=== PATIENT | female | born 1995 | race Caucasian/White ===

== ENCOUNTER 2016-04-23 08:00 | Outpatient (CLI) | payer BC | END 2016-04-23 08:01 | disposition home or self-care (01) | DX: Z36 Encounter for antenatal screening of mother (principal) ==

== ENCOUNTER 2016-05-09 14:13 | Outpatient (CLI) | payer BC | END 2016-05-09 14:14 | disposition home or self-care (01) | DX: O13.3 Gestational [pregnancy-induced] hypertension without significant proteinuria, third trimester (principal) ==

== ENCOUNTER 2016-05-09 20:25 | Inpatient (IN) | payer BC ==
[2016-05-09] MEDS ORDERED: SODIUM CHLORIDE FLUSH 0.9% 10 ML SYRINGE IVP ONE (20:39)
[2016-05-09] MEDS ORDERED: LACTATED RINGERS 1,000 ML IV ONE ×2 (20:39→21:50)
[2016-05-09] MEDS ORDERED: SODIUM CHLORIDE FLUSH 0.9% 10 ML SYRINGE IVP PRN (20:49)
[2016-05-09] MEDS ORDERED: SUFENTA/BUPIV 0.4 MCG/0.0625% 150 ML EP ONE (22:04)
[2016-05-09] MEDS: LACTATED RINGERS 1,000 ML IV SCH (22:08)
[2016-05-09] MEDS ORDERED: ROPIVACAINE 0.2% PF 20 ML AMPULE SUBQ ONE (22:19)
[2016-05-09] MEDS ORDERED: ePHEDrine 50 MG/ML AMP IVP PRN (22:32)
[2016-05-09] MEDS ORDERED: NALBUPHINE 20 MG/ML AMP IVP PRN (22:32)
[2016-05-09] MEDS ORDERED: SUFENTA/BUPIV 0.4 MCG/0.0625% EPIDURAL 150 ML EP PRN (22:32)
[2016-05-09] MEDS ORDERED: LACTATED RINGERS 500 ML IV ONE (22:32)
[2016-05-09] MEDS ORDERED: METOCLOPRAMIDE 10 MG/2 ML VIAL IVP PRN (22:32)
[2016-05-09] MEDS ORDERED: ONDANSETRON 4 MG/2 ML VIAL IVP PRN (22:32)
[2016-05-09] MEDS ORDERED: diphenhydrAMINE INJ 50 MG/ML VIAL IVP PRN (22:32)
[2016-05-09] MEDS ORDERED: NALOXONE 0.4 MG/ML VIAL IVP PRN (22:32)
[2016-05-10] MEDS ORDERED: fentaNYL 100 MCG/2 ML VIAL ONE (02:04)
[2016-05-10] MEDS ORDERED: OXYTOCIN/LACTATED RINGERS 250 ML IV ONE ×2 (02:36→03:06)
[2016-05-10] MEDS ORDERED: LIDOCAINE 1% 50 ML MDV ONE (02:40)
[2016-05-10] MEDS ORDERED: WITCH HAZEL/GLYCERIN 1 EACH MED..PAD TOP PRN (03:06)
[2016-05-10] MEDS ORDERED: HYDROCORTISONE/PRAMOXINE 10 GM PR PRN (03:06)
[2016-05-10] MEDS: IBUPROFEN 800 MG TABLET PO SCH ×4 (04:55→23:16)
[2016-05-10] MEDS: ACETAMINOPHEN 500 MG TABLET PO SCH ×3 (04:56→21:36)
[2016-05-10] MEDS: SODIUM CHLORIDE FLUSH 0.9% 10 ML SYRINGE IVP SCH ×2 (20:23→20:24)
[2016-05-10] MEDS: LACTATED RINGERS 1,000 ML IV SCH ×2 (20:33→20:34)
[2016-05-11] MEDS: LACTATED RINGERS 1,000 ML IV SCH (00:59)
[2016-05-11] MEDS: ACETAMINOPHEN 500 MG TABLET PO SCH (05:44)
[2016-05-11] MEDS: IBUPROFEN 800 MG TABLET PO SCH (05:45)
[2016-05-11] MEDS ORDERED: TETANUS/DIPHTHERIA/PERTUSSIS 0.5 ML SYRINGE IM ONE (08:35)
== END 2016-05-11 10:05 | disposition home or self-care (01) | DRG 775 ==
PROC: 10E0XZZ Delivery of Products of Conception, External Approach (ICD-10-PCS; principal; 2016-05-10)
DX: O99.343 Other mental disorders complicating pregnancy, third trimester (principal); F41.9 Anxiety disorder, unspecified; F31.9 Bipolar disorder, unspecified; O99.334 Smoking (tobacco) complicating childbirth; F17.200 Nicotine dependence, unspecified, uncomplicated; O76 Abnormality in fetal heart rate and rhythm complicating labor and delivery; Z3A.39 39 weeks gestation of pregnancy; Z37.0 Single live birth; O13.3 Gestational [pregnancy-induced] hypertension without significant proteinuria, third trimester

== ENCOUNTER 2017-04-12 11:31 | Emergency (ER) | payer BC, MEDICAID ==
[2017-04-12 12:06] LABS: BILIRUBIN,URINE NEGATIVE (NEGATIVE); GLUCOSE, URINE (UA) NEGATIVE (NEGATIVE); KETONES,URINE (UA) NEGATIVE (NEGATIVE); LEUKOCYTE ESTERASE, URINE NEGATIVE (NEGATIVE); NITRITE,URINE NEGATIVE (NEGATIVE); OCCULT BLOOD,URINE NEGATIVE (NEGATIVE); PH,URINE 6.5 PH (5.0-7.5); PROTEIN,URINE NEGATIVE (NEGATIVE); UROBILINOGEN,URINE 0.2 (NORMAL) E.U./dL (NORMAL)
--- NOTE | 2017-04-12 12:09 | ED Physician Documentation ---
PD HPI ABD PAIN - Stated complaint Stated Complaint: BLEEDING/7 WEEKS PREG - Chief complaint Chief Complaint: Abd Pain - History obtained from History obtained from: Patient - History of Present Illness Timing - onset: Other ( A1 at 7 weeks and 2 days by dates presents with slight vaginal bleeding but no pain today. Blood type is known to be a positive.) Review of Systems Constitutional: denies: Fever, Chills : reports: Vaginal bleeding, Now EGA. denies: Dysuria, Frequency PD PAST MEDICAL HISTORY - Present Medications Home Medications: Ambulatory Orders Medication Instructions Recorded Confirmed Pnv No.122/Iron/Folic Acid 04/12/17 [ Multi Tablet] - Allergies Allergies/Adverse Reactions: Allergies Allergy/AdvReac Type Severity Reaction Status Date / Time Penicillins Allergy Edema Verified 04/12/17 11:40 - Social History Does the pt smoke?: Yes Smoking Status: Current every day smoker PD ED PE NORMAL - Vitals Vital signs reviewed: Yes - General General: Alert and oriented X 3, No acute distress - Abdomen Abdomen: Normal bowel sounds, Soft, Non tender - Female Female : Other (On bedside ultrasound the uterus does look full but I do not appreciate an intrauterine nor a heart rate.) - Neuro Neuro: Alert and oriented X 3, Normal speech Results - Vitals Vitals: Vital Signs - 24 hr 04/12/17 04/12/17 11:36 13:52 Temperature 36.8 C Heart Rate 97 88 Respiratory 16 16 Rate Blood Pressure 136/86 H 123/59 L O2 Saturation 100 100 Oxygen O2 Source Room air - Labs Labs: Laboratory Tests 04/12/17 04/12/17 11:45 12:34 HCG, Quant 14826.00 Urine Color YELLOW Urine Clarity CLEAR Urine pH 6.5 Ur Specific [place] >=1.030 H Urine Protein NEGATIVE Urine Glucose (UA) NEGATIVE Urine Ketones NEGATIVE Urine Occult Blood NEGATIVE Urine Nitrite NEGATIVE Urine Bilirubin NEGATIVE Urine Urobilinogen 0.2 (NORMAL) Ur Leukocyte Esterase NEGATIVE Urine RBC None Seen Urine WBC 0-3 Ur Squamous Epith Cells MOD Squamous H Urine Bacteria Few Urine Mucus Marked Strands Urine Culture Comments NOT INDICATED Urine HCG, Qual POSITIVE - Rads (name of study) Pelvic sono Radiology: Discussed with rads, EMP read contemporaneously (IUP about 5w no FHT) PD MEDICAL DECISION MAKING - ED course ED course: 21-year-old with threatened , no clear signs of a miscarriage, but fetus is smaller than dates, although more concordant with dates based on last intercourse. Watchful waiting was advised. Departure - Departure Disposition: 01 Home, Self Care Clinical Impression: Threatened affecting intrauterine Condition: Good Record reviewed to determine appropriate education?: Yes Instructions: ED Miscarriage Poss Follow-Up: Jenny Liu CNM, [facility] [Provider Admit Priv/Credential] - Comments: Return for severe pain or heavy bleeding. Otherwise call Jenny and follow-up in about a week, anticipate she will either order a repeat ultrasound and/or a repeat beta-hCG. Discharge Date/Time: 04/12/17 14:18
[2017-04-12 12:15] LABS: BACTERIA,URINE Few /HPF (None Seen); CLARITY,URINE CLEAR (CLEAR); MUCUS,URINE Marked Strands; RBC,URINE None Seen /HPF (0-5); SQUAMOUS EPITHELIAL CELL,UR MOD Squamous (<= Few)
[2017-04-12 12:16] LABS: HCG UR QUAL POSITIVE
[2017-04-12 13:52] VITALS: BP 123/59
--- NOTE | 2017-04-12 15:45 | Ultrasound Report ---
FIRST TRIMESTER OB ULTRASOUND: 04/12/2017 INDICATION: Vaginal bleeding, TECHNIQUE: Transabdominal pelvic ultrasound performed for global evaluation. Transvaginal pelvic ultrasound performed for detailed evaluation. Real-time scanning performed and static images obtained. FINDINGS: The uterus is anteverted. There is a gestational sac in the endometrial canal, with yolk sac and pole visualized. No heart motion is seen, but by gestational sac mean diameter, it is too early for definitive visualization of heart motion. There does appear to be a 3.0 x 2.4 x 1.2 cm perigestational hemorrhage present. By crown rump length, the dates 5 weeks 6 days (7 weeks 1 day by LMP). The right ovary measures 4.8 x 3.3 x 3.0 cm, and demonstrates a corpus luteum. The left ovary measures 2.3 x 1.4 x 1.3 cm, and appears unremarkable. Trace free fluid is present. IMPRESSION: LIKELY IN PROGRESS, GIVEN ABSENT HEART MOTION AND PERIGESTATIONAL HEMORRHAGE, BUT BY GESTATIONAL SAC SIZE, IT IS TOO EARLY TO EXCLUDE THE POSSIBILITY OF A VIABLE GESTATION. IF CLINICALLY WARRANTED, FOLLOWUP SERIAL QUANTITATIVE BETA HCGS AND RESCANNING IN 7-10 DAYS FOR VIABILITY. Results discussed with Dr. Ivory in the emergency department on 04/12/2017 at 2 p.m. TD: 04/12/2017 15:44
== END 2017-04-12 14:18 | disposition home or self-care (01) ==
LOC: ED 11:31
DX: O20.0 Threatened abortion (principal); F17.200 Nicotine dependence, unspecified, uncomplicated; Z3A.01 Less than 8 weeks gestation of pregnancy
CPT/HCPCS: 36415; 76801; 76817; 81001; 81025; 84702; 87086; 99283

== ENCOUNTER 2017-04-15 14:45 | Outpatient (CLI) | payer MEDICAID | END 2017-04-15 14:46 | disposition home or self-care (01) | LOC: LAB 14:45 | PROVIDERS: ATTEND Registered Nurse | DX: O20.0 Threatened abortion (principal) | CPT/HCPCS: 36415; 84702 ==

== ENCOUNTER 2017-04-22 19:51 | Outpatient (CLI) | payer MEDICAID ==
--- NOTE | 2017-04-24 15:29 | Ultrasound Report ---
FIRST TRIMESTER OB ULTRASOUND WITH TRANSVAGINAL: 04/22/2017 CLINICAL INDICATION: Threatened . COMPARISON: 04/12/2017. TECHNIQUE: Transabdominal pelvic ultrasound performed for global evaluation. Transvaginal pelvic ultrasound performed for detailed evaluation. Real-time scanning performed and static images obtained. LAST MENSTRUAL PERIOD 02/21/2017 Clinical Age(LMP) 8 weeks 4 days LMP 7 weeks 0 days CRL US Age -- EFW Hadlock -- EFW% Hadlock -- Heart Rate 130 bpm EDC 11/28/2017 LMP 12/09/2017 CRL US EDC -- BPD Hadlock -- HC Hadlock -- AC Hadlock -- FL Hadlock -- Presentation -- Placental Location -- Cervical Length closed Amniotic Fluid -- FINDINGS: The uterus is retroverted. There is a gestational sac present within the endometrial canal, with pole, and yolk sac identified. heart rate is 130 BPM. By crown-rump length, the fetus measures 7 weeks 0 days (8 weeks 4 days by LMP). Estimated due date based on crown-rump length is 12/09/2017. There is perigestational hemorrhage present, measuring up to 4.2 cm in maximal diameter. The right ovary measures 3.6 x 2.7 x 1.8 cm, and demonstrates a 2.7 cm corpus luteum. The left ovary is suboptimally visualized , but no left adnexal mass is appreciated. No free fluid is present. IMPRESSION: SINGLE VIABLE INTRAUTERINE GESTATION, MEASURING 7 WEEKS 0 DAYS BY CROWN-RUMP LENGTH, YIELDING AN ESTIMATED DUE DATE OF 12/09/2017. THIS IS AN 11-DAY DIFFERENCE FROM LMP DATING, SO ULTRASOUND DATING SHOULD BE USED FOR THE DURATION OF THE . PERIGESTATIONAL HEMORRHAGE. RIGHT CORPUS LUTEUM. TD: 04/23/2017 14:41 [facility] HEALTHMichelle
== END 2017-04-22 19:52 | disposition home or self-care (01) ==
LOC: DI 19:51
PROVIDERS: ATTEND Registered Nurse
DX: O20.9 Hemorrhage in early pregnancy, unspecified (principal); Z3A.01 Less than 8 weeks gestation of pregnancy
CPT/HCPCS: 76801; 76817

== ENCOUNTER 2017-04-29 17:12 | Outpatient (CLI) | payer MEDICAID ==
--- NOTE | 2017-04-29 19:04 | Ultrasound Report ---
EXAM: FIRST TRIMESTER OBSTETRIC ULTRASOUND (Less than 11 weeks) EXAM DATE: 04/29/2017 06:22 PM. CLINICAL HISTORY: MISSED . LMP: Unknown. COMPARISONS: 04/22/2017. TECHNIQUE: Transabdominal and transvaginal ultrasound examination with static image documentation. CLINICAL DATES: EGA 8 weeks 0 days with WOJCIECH 12/07/2017 based on patient history. ASSESSMENT: Gestational Sac: Single intrauterine. Mean gestational sac diameter: 35.2 mm = 8 weeks 5 days. Embryo: CRL (crown-rump length) 15.2 mm = 7 weeks 6 days. Irregular configuration. Cardiac activity: None. Yolk sac: 3.2 mm. Amniotic fluid: Not accurately assessed at this gestational age. Early placenta: Not visible at this gestational age. Other: Perigestational fluid collection measuring 2.5 x 1.1 x 0.9 cm.. MATERNAL STRUCTURES: Uterus: Anteverted. Unremarkable. Cervix: Closed. Right Ovary/Adnexa: Unremarkable. The ovary measures 4.8 x 2.6 x 2.8 cm, volume 18.2 cc. Hemorrhagic cyst measuring 3.2 x 2.2 x 2.1 cm. Left Ovary/Adnexa: Unremarkable. The ovary measures 3.2 x 2.9 x 2.5 cm, volume 12.1 cc. Free Fluid: None. Other: None. IMPRESSION: Embryonic demise. RADIA The critical result notification system was initiated by Dr. Gerry Arroyo at 18:56 hrs on 04/29/17. The above findings were discussed with Artem Liu by Dr. Gerry Arroyo at 19:02 hrs on 04/29/17 . Referring Provider Line: [phone] SITE ID: [id number]
== END 2017-04-29 17:13 | disposition home or self-care (01) ==
LOC: DI 17:12
PROVIDERS: ATTEND Nurse Practitioner Obstetrics & Gynecology
DX: O02.1 Missed abortion (principal)
CPT/HCPCS: 76801; 76817

== ENCOUNTER 2017-05-01 16:31 | Outpatient (CLI) | payer MEDICAID ==
[2017-05-01 16:57] LABS: BASOPHILS % (AUTO) 0.5 %; EOSINOPHILS % (AUTO) 0.4 %; HGB - HEMOGLOBIN 12.6 g/dL (12.0-16.0); LYMPHOCYTES # (AUTO) 2.2 10^3/uL (1.5-3.5); LYMPHOCYTES % (AUTO) 22.1 %; MEAN CORPUSCULAR HEMOGLOBIN 29.2 pg (27.0-31.0); MEAN CORPUSCULAR HGB CONC 33.1 g/dL (32.0-36.0); MEAN CORPUSCULAR VOLUME 88.3 fL (81.0-99.0); MEAN PLATELET VOLUME 7.6 fL (7.9-10.8); MONOCYTES # (AUTO) 0.7 10^3/uL (0.0-1.0); MONOCYTES % (AUTO) 6.8 %; NEUTROPHILS % (AUTO) 70.2 %; PLT - PLATELET COUNT 211 10^3/uL (130-450); RED CELL DISTRIBUTION WIDTH 13.1 % (12.0-15.0)
== END 2017-05-01 16:32 | disposition home or self-care (01) ==
LOC: LAB 16:31
PROVIDERS: ATTEND Obstetrics & Gynecology
DX: O02.1 Missed abortion (principal)
CPT/HCPCS: 36415; 85025; 86850; 86900; 86901

== ENCOUNTER 2017-05-03 07:43 | Day surgery (SDC) | payer MEDICAID ==
--- NOTE | 2017-05-02 16:50 | PREOP HISTORY & PHYSICAL ---
DATE OF SERVICE: 05/03/2017 Physician: Barry Stewart MD ANTICIPATED PROCEDURE: 05/03/2017 PATIENT IDENTIFICATION: Patient is a 21-year-old G4, P3, female whose last menstrual period was 02/21/2017. She has a history of long cycles, and by ultrasonic determination, she had an EDC of 12/09/2017. This would make her 8 weeks 2 days today. CHIEF COMPLAINT: Missed . HISTORY OF PRESENT ILLNESS: Patient had normal ultrasounds all the way up until 2 days ago, at which time she had an ultrasound in the office, which did not show any cardiac activity. She had an ultrasound done at the hospital, which confirmed this. She denies any cramping or bleeding at this time. She has been offered the options of observation, Cytotec, or D and C. At this particular time, the patient is opting for a D and C. She is somewhat anxious about anesthesia and was concerned about nausea. She has been informed that the anesthesiologist may try and premedicate her to see if they can decrease the risk for this. PAST MEDICAL HISTORY: Positive for anemia with her pregnancies. SURGICAL HISTORY: None. ALLERGIES: PENICILLIN, WHICH CAUSES HIVES. CURRENT MEDICATIONS 1. vitamins. 2. Iron. HABITS: Patient smokes. She has been encouraged not to. Denies use of alcohol or any street or addictive drugs. SOCIAL HISTORY: Patient is and lives with her spouse and children. 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 REVIEW OF SYSTEMS: Positive for need of wearing glasses, as well as constipation. PHYSICAL EXAMINATION GENERAL: Patient is a well-developed, well-nourished white female. She is in no acute distress at this time. HEENT: Pupils equal, round. Extraocular muscles are intact. Thyroid is not palpably enlarged. HEART: Regular rate and rhythm without murmurs. LUNGS: Lung wirght are clear without rales or wheezes. BACK: No spinal or CVA tenderness noted. ABDOMEN: Exam shows evidence of striae from previous pregnancies but does not show evidence of any gallbladder or liver enlargement. PELVIC: Examination previously performed by Jenny Liu showed a cervix which was closed, a uterus which was anterior and roughly 8-week size. IMPRESSION: A 21-year-old G4, P3 female with 8.2 weeks missed . PLAN: We will perform sharp and suction D and C. We will also utilize Cytotec 400 mg vaginally about 2 hours prior to the procedure to increase softening. Risks and benefits have been explained to the patient including those, but not limited to bleeding, infection, injury to pelvic organs which include the uterus, tubes, ovaries, bowel, bladder, and ureters. She is aware of the potential for DVT with PE, as well as postop adhesions, which could cause pain, bowel obstruction and infertility. TD: 05/01/2017 19:43
[2017-05-03] MEDS ORDERED: LACTATED RINGERS 1,000 ML IV ONE (07:49)
[2017-05-03] MEDS ORDERED: ceFAZolin 2 GM/50 ML 2 GM/50 ML BAG IV ONE (07:52)
[2017-05-03] MEDS ORDERED: DEXAMETHASONE 4 MG/ML VIAL IVP ONE (09:15)
[2017-05-03] MEDS ORDERED: METHYLERGONOVINE 0.2 MG/ML AMP IVP ONE (09:15)
[2017-05-03] MEDS ORDERED: MIDAZOLAM 2 MG/2 ML VIAL IVP ONE (09:15)
[2017-05-03] MEDS ORDERED: fentaNYL 250 MCG/5 ML VIAL IVP ONE (09:15)
[2017-05-03] MEDS ORDERED: LIDOCAINE-MPF 2% 5 ML VIAL IM ONE (09:15)
[2017-05-03] MEDS ORDERED: ONDANSETRON 4 MG/2 ML VIAL IVP ONE (09:15)
[2017-05-03] MEDS ORDERED: KETOROLAC 30 MG/ML VIAL IVP ONE (09:15)
[2017-05-03] MEDS ORDERED: PROPOFOL 200 MG/20 ML VIAL IVP ONE (09:15)
[2017-05-03] MEDS ORDERED: oxyCODONE 5 MG TABLET ONE (10:37)
--- NOTE | 2017-05-03 10:44 | OPERATIVE REPORT ---
DATE OF SERVICE: 05/03/2017 Physician: Barry Stewart MD PREOPERATIVE DIAGNOSIS: Missed . POSTOPERATIVE DIAGNOSIS: Missed . NAME OF PROCEDURE: Sharp and suction dilation and curettage. SURGEON: Barry Stewart MD ANESTHESIA: LMA by Brayan Cortez CRNA. FINDINGS: Uterus sounded to 10 cm. COMPLICATIONS: None. ESTIMATED BLOOD LOSS: 150 mL. SPECIMEN TO PATHOLOGY: Products of conception. PROCEDURE: Following adequate anesthesia, the patient was placed in dorsal lithotomy position in [facility]. She was then prepped and then draped in the usual fashion. A timeout was performed, in which all issues were identified. The patient was confirmed, as well as procedure. A speculum was placed in the vagina. The cervix was visualized, grasped with a single-tooth tenaculum anteriorly. Uterus was sounded to 10 cm. Following this , the cervix was dilated up. No resistance was felt until 8 mm. This brought all the way up to 10 cm. At this point, a suction catheter was placed inside the uterus. It was rotated and gradually withdrawn. A normal amount of tissue was encountered. Bleeding was noted to be minimal at this time. The suction catheter was once again introduced and then suction applied. At this point, the endometrial cavity was sharply curetted in all quadrants. The patient was administered 0.2 mg of Methergine. The suction catheter was once more introduced and no further tissue was removed. At this point, the cervix was inspected and no bleeding noted. It was then released from the single-tooth tenaculum. The patient tolerated the procedure well and was taken to the recovery room in stable condition. TD: 05/03/2017 10:42 [facility]ITAL[facility]
[2017-05-03 11:04] VITALS: BP 124/62
== END 2017-05-03 07:44 | disposition home or self-care (01) ==
LOC: SDS 07:43
PROVIDERS: ATTEND Obstetrics & Gynecology
PROC: 10D17ZZ Extraction of Products of Conception, Retained, Via Natural or Artificial Opening (ICD-10-PCS; principal; 2017-05-03 08:45)
DX: O02.1 Missed abortion (principal); F17.200 Nicotine dependence, unspecified, uncomplicated
CPT/HCPCS: 59820; J0690; J3010; J7120

== ENCOUNTER 2017-10-01 08:00 | Outpatient (CLI) | payer MEDICAID ==
[2017-10-01 13:52] LABS: BASOPHILS % (AUTO) 0.5 %; EOSINOPHILS % (AUTO) 1.3 %; HGB - HEMOGLOBIN 13.3 g/dL (12.0-16.0); LYMPHOCYTES # (AUTO) 1.5 10^3/uL (1.5-3.5); LYMPHOCYTES % (AUTO) 44.8 %; MEAN CORPUSCULAR HEMOGLOBIN 30.3 pg (27.0-31.0); MEAN CORPUSCULAR HGB CONC 34.3 g/dL (32.0-36.0); MEAN CORPUSCULAR VOLUME 88.3 fL (81.0-99.0); MEAN PLATELET VOLUME 8.8 fL (7.9-10.8); MONOCYTES # (AUTO) 0.3 10^3/uL (0.0-1.0); MONOCYTES % (AUTO) 7.9 %; NEUTROPHILS # (AUTO) 1.5 10^3/uL (1.5-6.6); NEUTROPHILS % (AUTO) 45.5 %; PLT - PLATELET COUNT 189 10^3/uL (130-450); RED BLOOD COUNT 4.41 10^6/uL (4.20-5.40); RED CELL DISTRIBUTION WIDTH 12.8 % (12.0-15.0); WHITE BLOOD COUNT 3.4 x10^3/uL (4.8-10.8)
[2017-10-01 14:26] LABS: ALBUMIN 4.6 g/dL (3.2-5.5); ALBUMIN/GLOBULIN RATIO 1.5 (1.0-2.2); ALKALINE PHOSPHATASE 41 IU/L (42-121); ALT ALANINE AMINOTRANSFERASE 18 IU/L (10-60); AST ASPARTATE AMINOTRANSFERASE 22 IU/L (10-42); BILIRUBIN,TOTAL 0.9 mg/dL (0.2-1.0); BUN - BLOOD UREA NITROGEN 14 mg/dL (6-20); CALCIUM 9.1 mg/dL (8.5-10.3); CARBON DIOXIDE - CO2 27 mmol/L (21-32); CHLORIDE 103 mmol/L (101-111); CHOL/HDL RATIO 2.9 (<4.4); CHOLESTEROL 160 mg/dL; CREATININE 0.6 mg/dL (0.4-1.0); GFR - MDRD 124 (>89); GLUCOSE 82 mg/dL (70-100); HDL CHOLESTEROL 55 mg/dL; SODIUM 138 mmol/L (135-145); TOTAL PROTEIN 7.6 g/dL (6.7-8.2)
[2017-10-01 14:51] LABS: LDL CHOLESTEROL,DIRECT 89 mg/dL; LDLD/HDL RATIO 1.6 (<4.4)
== END 2017-10-01 08:01 | disposition home or self-care (01) ==
LOC: LAB.N 08:00
PROVIDERS: ATTEND Nurse Practitioner Gerontology
DX: Z13.9 Encounter for screening, unspecified (principal); E03.9 Hypothyroidism, unspecified
CPT/HCPCS: 36415; 80050; 80061; 83721

== ENCOUNTER 2018-02-14 10:13 | Emergency (ER) | payer MEDICAID ==
[2018-02-14 11:52] LABS: BILIRUBIN,URINE NEGATIVE (NEGATIVE); GLUCOSE, URINE (UA) 100 mg/dL (NEGATIVE); KETONES,URINE (UA) TRACE mg/dL (NEGATIVE); LEUKOCYTE ESTERASE, URINE SMALL (NEGATIVE); NITRITE,URINE POSITIVE (NEGATIVE); OCCULT BLOOD,URINE LARGE (NEGATIVE); PH,URINE 6.5 PH (5.0-7.5); PROTEIN,URINE 100 mg/dL (NEGATIVE); UROBILINOGEN,URINE 4 E.U./dL (NORMAL)
[2018-02-14 11:57] LABS: CLARITY,URINE HAZY (CLEAR); HCG UR QUAL NEGATIVE
--- NOTE | 2018-02-14 12:08 | ED Physician Documentation ---
PD HPI FEMALE - Stated complaint Stated Complaint: FEMALE - Chief complaint Chief Complaint: UTI - History obtained from History obtained from: Patient - History of Present Illness Timing - onset: How many days ago (2-3) Timing - duration: Days (2-3) Timing - details: Gradual onset Pain level max: 3 Pain level max: 2 Associated symptoms: Dysuria, Urinary frequency Contributing factors: No: Similar symptoms before: Diagnosis (UTI) Recently seen: Not recently seen Review of Systems Constitutional: denies: Fever GI: denies: Vomiting Skin: denies: Rash Musculoskeletal: denies: Back pain PD PAST MEDICAL HISTORY - Past Medical History Cardiovascular: None Respiratory: None Endocrine/Autoimmune: None GI: None : None HEENT: None Psych: Anxiety, Obsessive compulsive disorder Musculoskeletal: None Derm: None - Present Medications Home Medications: Ambulatory Orders Medication Instructions Recorded Confirmed Multivitamin [Multiple Vitamins] 02/14/18 Nitrofurantoin Monohyd/M-Cryst 100 mg PO BID #10 capsule 02/14/18 [Macrobid 100 mg Capsule] Phenazopyridine HCl [Pyridium] 200 mg PO TID PRN #6 tablet 02/14/18 - Allergies Allergies/Adverse Reactions: Allergies Allergy/AdvReac Type Severity Reaction Status Date / Time Penicillins Allergy Edema Verified 02/14/18 10:32 - Social History Does the pt smoke?: Yes Smoking Status: Current every day smoker PD ED PE NORMAL - Vitals Vital signs reviewed: Yes - General General: Alert and oriented X 3, No acute distress - HEENT HEENT: Moist mucous membranes - Abdomen Abdomen: Soft, Non tender, Non distended - Back Back: No CVA TTP - Derm Derm: Warm and dry - Neuro Neuro: Alert and oriented X 3 Results - Vitals Vitals: Vital Signs - 24 hr 02/14/18 02/14/18 10:29 12:10 Temperature 36.7 C 36.5 C Heart Rate 96 95 Respiratory 16 16 Rate Blood Pressure 111/63 122/62 O2 Saturation 100 100 Oxygen O2 Source Room air - Labs Labs: Laboratory Tests 02/14/18 02/14/18 11:36 11:36 Urine Color ORANGE Urine Clarity HAZY Urine pH 6.5 Ur Specific [place] 1.025 1.025 Urine Protein 100 H Urine Glucose (UA) 100 H Urine Ketones TRACE Urine Occult Blood LARGE H Urine Nitrite POSITIVE H Urine Bilirubin NEGATIVE Urine Urobilinogen 4 H Ur Leukocyte Esterase SMALL H Ur Microscopic Review INDICATED Urine Culture Comments Not Reportable Urine HCG, Qual NEGATIVE PD MEDICAL DECISION MAKING - ED course Complexity details: reviewed results, considered differential, d/w patient ED course: 2-year-old female with a UTI. Will place on antibiotics for home. Well- appearing, nontoxic. Afebrile. No evidence of pyelonephritis. Patient counseled regarding signs and symptoms for which I believe and urgent re- evaluation would be necessary. Patient with good understanding of and agreement to plan and is comfortable going home at this time This document was made in part using voice recognition software. While efforts are made to proofread this document, sound alike and grammatical errors may occur. Departure - Departure Disposition: Home, Self Care Clinical Impression: Urinary tract infection Qualifiers: Urinary tract infection type: acute cystitis Hematuria presence: without hematuria Qualified Code(s): N30.00 - Acute cystitis without hematuria Condition: Good Instructions: ED UTI Cystitis Female Follow-Up: Irene Agarwal ARNP [Primary Care Provider] - Within 1 week (if not better) Prescriptions: Nitrofurantoin Monohyd/M-Cryst [Macrobid 100 mg Capsule] 100 mg PO BID #10 capsule Phenazopyridine HCl [Pyridium] 200 mg PO TID PRN #6 tablet PRN Reason: dysuria Comments: Take all antibiotics until gone. Return if you worsen.
[2018-02-14 12:11] VITALS: BP 122/62
[2018-02-14 12:13] LABS: RBC,URINE TNTC /HPF (0-5)
[2018-02-14 12:14] LABS: BACTERIA,URINE Few /HPF (None Seen); MUCUS,URINE Few Strands; SQUAMOUS EPITHELIAL CELL,UR FEW Squamous (<= Few)
== END 2018-02-14 12:12 | disposition home or self-care (01) ==
LOC: ED 10:13
DX: N30.00 Acute cystitis without hematuria (principal); F17.200 Nicotine dependence, unspecified, uncomplicated
CPT/HCPCS: 81001; 81003; 81025; 87086; 87181; 99283

== ENCOUNTER 2018-09-11 17:15 | Outpatient (CLI) | payer MEDICAID ==
--- NOTE | 2018-09-12 11:46 | Ultrasound Report ---
Reason: TEST POSITIVE Procedure Date: 09/11/2018 Accession Number: [id number] / [id number] Procedure: US - OB First Trimester CPT Code: FULL RESULT: EXAM: FIRST TRIMESTER OBSTETRIC ULTRASOUND (Less than 11 weeks) EXAM DATE: 09/11/2018 06:14 PM. CLINICAL HISTORY: test positive. LMP: 07/17/2018. COMPARISONS: OB FIRST TRIMESTER 04/22/2017 7:59 PM. TECHNIQUE: Transabdominal and transvaginal ultrasound examination with static image documentation. CLINICAL DATES: EGA 8 weeks 0 days with WOJCIECH 04/23/2019 based on LMP. ASSESSMENT: Gestational Sac: Single intrauterine. Mean gestational sac diameter: 6.7 mm = 5 weeks 3 days with an WOJCIECH of 05/11/2019. Embryo: None. Cardiac activity: None. Yolk sac: None. Amniotic fluid: Not accurately assessed at this gestational age. Early placenta: Not visible at this gestational age. Other: No perigestational fluid collection demonstrated. MATERNAL STRUCTURES: Uterus: Anteverted. Unremarkable. Cervix: Closed. Right Ovary/Adnexa: The ovary measures 3.4 x 1.9 x 2.1 cm, volume 7 cc. 1.6 x 0.7 x 0.8 cm hypoechoic right ovarian cyst. No concerning features are noted. Left Ovary/Adnexa: The ovary measures 2.5 x 2.7 x 2.1 cm, volume 7.4 cc. Unremarkable. Free Fluid: Small volume of free fluid is noted. Other: None. IMPRESSION: 1. Single intrauterine gestational sac of unclear viability at EGA 5 weeks 3 days with WOJCIECH 05/11/2019 based on mean sac diameter, which is discordant with clinical dates. 2. Recommend follow-up ultrasound for dating purposes and to document progression of . 3. No complication such as a subchronic hemorrhage. 4. 1.6 cm right ovarian cyst. Otherwise, both ovaries and adnexa are normal. RADIA
== END 2018-09-11 17:16 | disposition home or self-care (01) ==
LOC: DI 17:15
PROVIDERS: ATTEND Nurse Practitioner Obstetrics & Gynecology
DX: Z32.01 Encounter for pregnancy test, result positive (principal); O34.81 Maternal care for other abnormalities of pelvic organs, first trimester; N83.201 Unspecified ovarian cyst, right side; Z3A.01 Less than 8 weeks gestation of pregnancy
CPT/HCPCS: 76801; 76817

== ENCOUNTER 2018-09-19 08:39 | Outpatient (CLI) | payer MEDICAID ==
--- NOTE | 2018-09-21 00:33 | Ultrasound Report ---
Reason: UNCERTAIN VIABILITY OF Procedure Date: 09/19/2018 Accession Number: [id number] / [id number] Procedure: US - OB First Trimester CPT Code: FULL RESULT: EXAM: OB FIRST TRIMESTER EXAM DATE: 09/19/2018 08:47 AM INDICATION: Uncertain viability of . LMP: 07/17/2018. COMPARISONS: OB FIRST TRIMESTER 09/11/2018 5:34 PM. TECHNIQUE: Transabdominal only ultrasound examination with static image documentation. CLINICAL DATES: EGA 6 weeks 4 days with WOJCIECH 05/11/2019 based on prior ultrasound. ASSESSMENT: Gestational Sac:Single intrauterine. Mean gestational sac diameter: 9 mm = 05/17/2019. Previous gestational sac measures 6.7 mm. Embryo: none. Cardiac activity: none. Yolk sac: none. Amniotic fluid: Not applicable. Early placenta: Not applicable. Other: None. MATERNAL STRUCTURES: Uterus: Anteverted. Unremarkable. Cervix: Closed. Right Ovary/Adnexa: Unremarkable. The ovary measures 2.8 x 1.8 x 2.6 cm, volume 6.7 cc. Left Ovary/Adnexa: Ovary not seen. No adnexal abnormality. Limitation secondary to bowel gas. Free Fluid: None. Other: None. IMPRESSION: 1. Single intrauterine gestational sac identified. No embryo or yolk sac seen. Based on the mean sac diameter, estimated gestational age is 5 weeks 5 days with an WOJCIECH of 05/17/2019. No developing embryo identified on the current study despite the previous ultrasound performed 9 days ago. Previous ultrasound demonstrated a gestational sac measuring 6.7 mm. No embryo or yolk sac identified on the current study. Imaging findings are concerning for but not diagnostic of failure. 2. No concerning adnexal lesions. Normal right ovary. Left ovary not seen. RADIA
== END 2018-09-19 08:40 | disposition home or self-care (01) ==
LOC: DI 08:39
PROVIDERS: ATTEND Nurse Practitioner Obstetrics & Gynecology
DX: O36.80X0 Pregnancy with inconclusive fetal viability, not applicable or unspecified (principal)
CPT/HCPCS: 76801

== ENCOUNTER 2018-09-22 | Outpatient (CLI) | payer MEDICAID | END 2018-09-22 19:02 | disposition home or self-care (01) | DX: O36.80X0 Pregnancy with inconclusive fetal viability, not applicable or unspecified (principal) ==

== ENCOUNTER 2018-09-24 18:48 | Outpatient (CLI) | payer MEDICAID | END 2018-09-24 18:49 | disposition home or self-care (01) | LOC: EMS 18:48 | PROVIDERS: ATTEND Nurse Practitioner Obstetrics & Gynecology | DX: O36.80X0 Pregnancy with inconclusive fetal viability, not applicable or unspecified (principal) | CPT/HCPCS: 36415; 84702 ==

== ENCOUNTER 2018-09-26 10:25 | Outpatient (CLI) | payer MEDICAID | END 2018-09-26 10:26 | disposition home or self-care (01) | LOC: LAB 10:25 | PROVIDERS: ATTEND Obstetrics & Gynecology | DX: O36.80X0 Pregnancy with inconclusive fetal viability, not applicable or unspecified (principal) | CPT/HCPCS: 36415; 84702 ==

== ENCOUNTER 2019-03-16 06:41 | Outpatient (CLI) | payer MEDICAID ==
--- NOTE | 2019-03-16 07:52 | Ultrasound Report ---
Reason: TEST POSITIVE Procedure Date: 03/16/2019 Accession Number: [id number] / [id number] Procedure: US - OB First Trimester CPT Code: Final Report FULL RESULT: EXAM: FIRST TRIMESTER OBSTETRIC ULTRASOUND (Less than 11 weeks) EXAM DATE: 03/16/2019 06:53 AM. CLINICAL HISTORY: TEST POSITIVE. Dating. LMP: 01/12/2019. COMPARISONS: OB FIRST TRIMESTER 09/19/2018 8:46 AM. TECHNIQUE: Transabdominal ultrasound examination with static image documentation. CLINICAL DATES: EGA 9 weeks 0 days with WOJCIECH 10/19/2019 based on LMP. ASSESSMENT: Gestational Sac: Single intrauterine. Mean gestational sac diameter: 22.4 mm = 7 weeks 1 day. Embryo: CRL (crown-rump length) 18.0 mm = 8 weeks 2 days. Cardiac activity: 171 beats per minute. Yolk sac: 2.4 mm. Amniotic fluid: Not accurately assessed at this gestational age. Early placenta: Not visible at this gestational age. Other: No perigestational fluid collection demonstrated. MATERNAL STRUCTURES: Uterus: Anteverted. Unremarkable. Cervix: Closed. Right Ovary/Adnexa: The ovary measures 3.9 x 2.6 x 3.5 cm, volume 18.6 cc. There is a corpus luteum measuring 2.6 x 2.4 x 2.9 cm. Left Ovary/Adnexa: The ovary measures 2.6 x 0.9 x 1.6 cm, volume 2.0 cc. Unremarkable. Free Fluid: None. Other: None. IMPRESSION: 1. Single viable intrauterine at EGA 8 weeks 2 days with WOJCIECH 10/24/2019 based on crown-rump length, which is concordant with clinical dates. 2. Assigned dating is WOJCIECH 10/19/2019 based on LMP. DINA
== END 2019-03-16 06:42 | disposition home or self-care (01) ==
LOC: DI 06:41
PROVIDERS: ATTEND Obstetrics & Gynecology
DX: Z32.01 Encounter for pregnancy test, result positive (principal)
CPT/HCPCS: 76801

== ENCOUNTER 2019-04-03 08:00 | Outpatient (CLI) | payer MEDICAID ==
[2019-04-03 17:31] LABS: MUDS CUTOFF CONCENTRATIONS CUTOFF CONC BELOW:
[2019-04-03 17:39] LABS: BILIRUBIN,URINE NEGATIVE (NEGATIVE); GLUCOSE, URINE (UA) NEGATIVE (NEGATIVE); KETONES,URINE (UA) NEGATIVE (NEGATIVE); LEUKOCYTE ESTERASE, URINE NEGATIVE (NEGATIVE); NITRITE,URINE NEGATIVE (NEGATIVE); OCCULT BLOOD,URINE NEGATIVE (NEGATIVE); PROTEIN,URINE NEGATIVE (NEGATIVE); UROBILINOGEN,URINE 0.2 (NORMAL) E.U./dL (NORMAL)
[2019-04-03 17:55] LABS: AMORPHOUS SEDIMENT,UR Moderate /LPF; BACTERIA,URINE Rare /HPF (None Seen); CLARITY,URINE CLOUDY (CLEAR); RBC,URINE 0-5 /HPF (0-5); SQUAMOUS EPITHELIAL CELL,UR MOD Squamous (<= Few)
[2019-04-03 17:56] LABS: AMPHETAMINE SCREEN,URINE NEGATIVE (NEGATIVE); BENZODIAZEPINES SCREEN, URINE NEGATIVE (NEGATIVE); COCAINE SCREEN URINE NEGATIVE (NEGATIVE); METHADONE SCREEN, URINE NEGATIVE (NEGATIVE); METHAMPHETAMINES SCREEN, URINE NEGATIVE (NEGATIVE); OPIATE SCREEN, URINE NEGATIVE (NEGATIVE); OXYCODONE SCREEN, URINE NEGATIVE (NEGATIVE); PROPOXYPHENE SCREEN, URINE NEGATIVE (NEGATIVE); TRICYCLIC ANTIDEPRESSANT,URINE NEGATIVE (NEGATIVE)
[2019-04-03 21:35] LABS: TRICHOMONAS VAGINALIS DNA NEGATIVE (NEGATIVE)
== END 2019-04-03 23:59 | disposition home or self-care (01) ==
LOC: LAB.R 08:00
PROVIDERS: ATTEND Nurse Practitioner Obstetrics & Gynecology
DX: Z36.89 Encounter for other specified antenatal screening (principal)
CPT/HCPCS: 80306; 81001; 87086; 87491; 87591; 87661

== ENCOUNTER 2019-04-06 12:53 | Outpatient (CLI) | payer MEDICAID ==
[2019-04-06 13:23] LABS: BASOPHILS % (AUTO) 0.3 %; EOSINOPHILS # (AUTO) 0.1 10^3/uL (0.0-0.7); EOSINOPHILS % (AUTO) 1.1 %; HGB - HEMOGLOBIN 11.9 g/dL (12.0-16.0); LYMPHOCYTES # (AUTO) 2.1 10^3/uL (1.5-3.5); MEAN CORPUSCULAR HEMOGLOBIN 30.4 pg (27.0-31.0); MEAN CORPUSCULAR VOLUME 92.1 fL (81.0-99.0); MEAN PLATELET VOLUME 9.5 fL (7.9-10.8); MONOCYTES # (AUTO) 0.6 10^3/uL (0.0-1.0); MONOCYTES % (AUTO) 7.7 %; NEUTROPHILS # (AUTO) 4.7 10^3/uL (1.5-6.6); NEUTROPHILS % (AUTO) 62.4 %; PLT - PLATELET COUNT 193 10^3/uL (130-450); RED BLOOD COUNT 3.92 10^6/uL (4.20-5.40); WHITE BLOOD COUNT 7.4 x10^3/uL (4.8-10.8)
[2019-04-07 12:15] LABS: HEPATITIS B SURFACE ANTIGEN NON-REACTIVE (NON-REACTIVE); HEPATITIS C ANTIBODY NON-REACTIVE (NON-REACTIVE); HIV AG/AB 4TH GEN NON-REACTIVE (NON-REACTIVE)
== END 2019-04-06 12:54 | disposition home or self-care (01) ==
LOC: LAB 12:53
PROVIDERS: ATTEND Nurse Practitioner Obstetrics & Gynecology
DX: Z36.0 Encounter for antenatal screening for chromosomal anomalies (principal); Z36.89 Encounter for other specified antenatal screening; Z36.8A Encounter for antenatal screening for other genetic defects
CPT/HCPCS: 36415; 81599; 85025; 86592; 86762; 86803; 86850; 86900; 86901; 87340; 87389

== ENCOUNTER 2019-05-29 08:23 | Outpatient (CLI) | payer MEDICAID ==
--- NOTE | 2019-05-31 02:29 | Ultrasound Report ---
Reason: Procedure Date: 05/29/2019 Accession Number: [id number] / [id number] Procedure: US - OB Detailed Eval CPT Code: Final Report FULL RESULT: EXAM: COMPLETE OBSTETRICAL ULTRASOUND EXAM DATE: 05/29/2019 10:39 AM. CLINICAL HISTORY: anatomic survey. COMPARISON: OB FIRST TRIMESTER 03/16/2019 6:53 AM. TECHNIQUE: Real-time sonographic evaluation of the fetus performed by the silviculture teacher. Multiple financial foundations representative static images were saved for review. DATING: Established EGA 18 weeks 6 days with WOJCIECH 10/24/2019 based on stated dates. EGA 18 weeks 6 days with WOJCIECH 10/24/2019 based on first ultrasound. EGA 18 weeks 6 days with WOJCIECH 10/24/2019 based on the current ultrasound. GENERAL EVALUATION Liu . Cardiac activity: 150 bpm. movement: Visualized. Presentation: Variable. Placenta: Posterior position. No evidence for previa. Umbilical cord: 3 vessel cord. Central placental cord origin. Amniotic fluid: Subjectively normal. MVP 3.5 cm. BIOMETRY Bi-Parietal Diameter (BPD): 4.3 cm, 19 weeks 1 day Head Circumference (HC): 15.9 cm, 18 weeks 5 days Abdominal Circumference (AC): 13.5 cm, 19 weeks 0 days Femur Length (FL): 2.8 cm, 18 weeks 4 days Estimated Weight: 258 g, 41.8 percentile for 18 weeks 6 days. ANATOMY The intracranial structures, profile, face/nose/lips, spine, 4 chamber heart and outflow tracts, stomach, abdominal wall and cord insertion, diaphragm, kidneys, bladder, and extremities were visualized and demonstrate no abnormality. MATERNAL STRUCTURES Uterus: Unremarkable. Cervix: Long and closed. Transabdominal length 6.0 cm. Right ovary/adnexa: Unremarkable. Left ovary/adnexa: Unremarkable. Free fluid: None. IMPRESSION: 1. Liu live intrauterine with gestational age 18 weeks 6 days based on stated dates. 2. Estimated weight is within expected limits for assigned dating. 3. Normal anatomic survey. No anatomic abnormalities are detected at this time. RADIA
== END 2019-05-29 08:24 | disposition home or self-care (01) ==
LOC: DI 08:23
PROVIDERS: ATTEND Nurse Practitioner Obstetrics & Gynecology
DX: Z34.92 Encounter for supervision of normal pregnancy, unspecified, second trimester (principal); Z36.8A Encounter for antenatal screening for other genetic defects
CPT/HCPCS: 76811

== ENCOUNTER 2019-08-14 11:34 | Outpatient (CLI) | payer MEDICAID ==
[2019-08-14 12:53] LABS: HGB - HEMOGLOBIN 11.8 g/dL (12.0-16.0); MEAN CORPUSCULAR HEMOGLOBIN 31.6 pg (27.0-31.0); MEAN CORPUSCULAR HGB CONC 34.2 g/dL (32.0-36.0); MEAN CORPUSCULAR VOLUME 92.5 fL (81.0-99.0); MEAN PLATELET VOLUME 9.7 fL (7.9-10.8); RED BLOOD COUNT 3.73 10^6/uL (4.20-5.40); RED CELL DISTRIBUTION WIDTH 12.9 % (12.0-15.0); WHITE BLOOD COUNT 7.2 x10^3/uL (4.8-10.8)
== END 2019-08-14 11:35 | disposition home or self-care (01) ==
LOC: LAB 11:34
PROVIDERS: ATTEND Advanced Practice Midwife
DX: Z34.90 Encounter for supervision of normal pregnancy, unspecified, unspecified trimester (principal); Z36.8A Encounter for antenatal screening for other genetic defects; Z36.89 Encounter for other specified antenatal screening
CPT/HCPCS: 36415; 82950; 85027; 86850

== ENCOUNTER 2019-09-25 11:45 | Outpatient (CLI) | payer MEDICAID ==
[2019-09-25 19:34] LABS: TRICHOMONAS VAGINALIS DNA NEGATIVE (NEGATIVE)
== END 2019-09-25 23:59 | disposition home or self-care (01) ==
LOC: LAB.R 11:45
PROVIDERS: ATTEND Radiology Diagnostic Radiology
DX: Z34.90 Encounter for supervision of normal pregnancy, unspecified, unspecified trimester (principal); Z36.85 Encounter for antenatal screening for Streptococcus B
CPT/HCPCS: 87491; 87591; 87661; 87797

== ENCOUNTER 2019-10-16 06:03 | Inpatient (IN) | payer MEDICAID ==
[2019-10-16] MEDS ORDERED: TRANEXAMIC ACID 1,000 MG in SODIUM CHLORIDE 0.9% 100ML 100 ML IV PRN (06:25)
[2019-10-16] MEDS ORDERED: SODIUM CHLORIDE FLUSH 0.9% 10 ML SYRINGE IVP PRN (06:25)
[2019-10-16] MEDS ORDERED: CARBOPROST TROMETHAMINE 250 MCG/ML AMP IM PRN (06:25)
[2019-10-16] MEDS ORDERED: fentaNYL 100 MCG/2 ML VIAL IVP PRN (06:25)
[2019-10-16] MEDS ORDERED: ONDANSETRON 4 MG/2 ML VIAL IVP PRN ×2 (06:25→09:10)
[2019-10-16] MEDS ORDERED: OXYTOCIN 10 UNIT/ML VIAL IM PRN (06:25)
[2019-10-16] MEDS ORDERED: OXYTOCIN/SODIUM CHLORIDE 500 ML IV PRN (06:25)
[2019-10-16] MEDS ORDERED: METHYLERGONOVINE 0.2 MG/ML VIAL IM PRN (06:25)
[2019-10-16] MEDS ORDERED: LIDOCAINE-MPF 1% 30 ML VIAL ID PRN (06:25)
[2019-10-16] MEDS ORDERED: miSOPROStoL 200 MCG TABLET BC PRN (06:25)
[2019-10-16] MEDS ORDERED: LACTATED RINGERS 1,000 ML IV SCH (07:00)
[2019-10-16 08:09] LABS: BASOPHILS % (AUTO) 0.3 %; EOSINOPHILS % (AUTO) 0.4 %; LYMPHOCYTES % (AUTO) 25.6 %; MEAN CORPUSCULAR HEMOGLOBIN 31.2 pg (27.0-31.0); MEAN CORPUSCULAR HGB CONC 34.5 g/dL (32.0-36.0); MEAN CORPUSCULAR VOLUME 90.4 fL (81.0-99.0); MEAN PLATELET VOLUME 11.5 fL (7.9-10.8); MONOCYTES # (AUTO) 0.6 10^3/uL (0.0-1.0); MONOCYTES % (AUTO) 8.2 %; NEUTROPHILS % (AUTO) 65.1 %; PLT - PLATELET COUNT 197 10^3/uL (130-450); RED BLOOD COUNT 4.17 10^6/uL (4.20-5.40); RED CELL DISTRIBUTION WIDTH 13.2 % (12.0-15.0); WHITE BLOOD COUNT 7.7 x10^3/uL (4.8-10.8)
[2019-10-16] MEDS ORDERED: fentaNYL 100 MCG/2 ML VIAL ONE (08:35)
[2019-10-16] MEDS ORDERED: ROPIVACAINE 0.2% 200 MG/100 ML BAG EP ONE (08:35)
[2019-10-16] MEDS ORDERED: BUPIVACAINE 0.25% PF 10 ML VIAL ONE (08:36)
--- NOTE | 2019-10-16 08:42 | PROVIDER PROGRESS NOTE ---
Subjective - Subjective Subjective: Feeling OK. Latching, eating, ambulating without problems. No heavy bleeding. AVSS, excellent UOP Smiling, cuddling baby, NAD Abd soft, nt/nd Fundus firm, NT, at U Hct 29 P1 PPD #0 s/p at term, long IOL, 1200cc PPH and bakri in situ. Bleeeding is excellent now. Will remove an IV and her corado. Plan to deflate bakri by 1/2 later today. Objective - Vital Signs/Intake & Output Vital Signs: Vital Signs x48h Temp Pulse Pulse Resp BP BP Pulse Ox 10/16/19 07:26 98.6 F 75 16 123/63 10/16/19 06:34 99.0 F 77 16 125/68 97 - Lab Results Fish Bones: 10/16/19 07:35 Other Labs: Lab Results x24hrs 10/16/19 Range/Units 07:35 WBC 7.7 (4.8-10.8) x10^3/uL RBC 4.17 L (4.20-5.40) 10^6/uL Hgb 13.0 (12.0-16.0) g/dL Hct 37.7 (37.0-47.0) % MCV 90.4 (81.0-99.0) fL MCH 31.2 H (27.0-31.0) pg MCHC 34.5 (32.0-36.0) g/dL RDW 13.2 (12.0-15.0) % Plt Count 197 (130-450) 10^3/uL MPV 11.5 H (7.9-10.8) fL Neut # (Auto) 5.0 (1.5-6.6) 10^3/uL Lymph # (Auto) 2.0 (1.5-3.5) 10^3/uL Murray # (Auto) 0.6 (0.0-1.0) 10^3/uL Eos # (Auto) 0.0 (0.0-0.7) 10^3/uL Baso # (Auto) 0.0 (0.0-0.1) 10^3/uL Absolute Nucleated RBC 0.00 x10^3/uL Nucleated RBC % 0.0 /100WBC
--- NOTE | 2019-10-16 08:47 | HISTORY & PHYSICAL EXAMINATION ---
History of Present Illness - History of Present Illness HPI Comment/Other: CC: broken bag of water HPI: Clear LOF at 0500. Started UC after that, currently 05/28. No VB. ROS: feeling well PMH: neg PSH: D&C x1 Allergies: PCN--> "swelling" as an Meds: PNV SH: no t/e/d FH: no anesthesia reactions OB: , WOJCIECH 9/5, GBS neg Rh+, RI, , normal pap O: AVSS Alert, smiling, NAD EFW 7# renee Vertex by US SVE with RN 3cm and high Category 1 NST [place] q1-5min A/P: 24yo at 38w6d with SROM clear for a few hours. Labor: UC q1-5min, will start pitocin to get in a regular contraction pattern. GBS neg. Anticipate Fetus: 7# EFW, category 1 NST, vertex, normal anatomy US, normal step 1 of sequential screening and declined step 2. : Rh+, RI, , normal pap. Will ask about Tdap and flu. History - Past Medical History Cardiovascular: reports: None Respiratory: reports: None Endocrine/Autoimmune: reports: None GI: reports: None : reports: None HEENT: reports: None Psych: reports: Anxiety, Obsessive compulsive disorder Musculoskeletal: reports: None Derm: reports: None MRSA Hx?: No Meds/Allgy - Home Medications Home Medications: Ambulatory Orders Medication Instructions Recorded Confirmed Multivitamin [Multiple Vitamins] 02/14/18 Nitrofurantoin Monohyd/M-Cryst 100 mg PO BID #10 capsule 02/14/18 [Macrobid 100 mg Capsule] Phenazopyridine HCl [Pyridium] 200 mg PO TID PRN #6 tablet 02/14/18 - Allergies Allergies/Adverse Reactions: Allergies Allergy/AdvReac Type Severity Reaction Status Date / Time Penicillins Allergy Edema Verified 02/14/18 10:32 Exam - Vital Signs Vital Signs: Vital Signs x48h Temp Pulse Pulse Resp BP BP Pulse Ox 10/16/19 07:26 98.6 F 75 16 123/63 10/16/19 06:34 99.0 F 77 16 125/68 97 Conclusion/Plan - Lab Results Fish Bones: 10/16/19 07:35
[2019-10-16] MEDS ORDERED: ROPIVACAINE 0.2% 200 MG/100 ML BAG EP PRN (09:10)
[2019-10-16] MEDS ORDERED: NALBUPHINE 10 MG/ML AMP IVP PRN (09:10)
[2019-10-16] MEDS ORDERED: METOCLOPRAMIDE 10 MG/2 ML VIAL IVP PRN (09:10)
[2019-10-16] MEDS ORDERED: NALOXONE 0.4 MG/ML VIAL IVP PRN (09:10)
[2019-10-16] MEDS ORDERED: LACTATED RINGERS 500 ML IV ONE (09:10)
[2019-10-16] MEDS ORDERED: diphenhydrAMINE INJ 50 MG/ML VIAL IVP PRN (09:10)
[2019-10-16] MEDS ORDERED: ePHEDrine 50 MG/ML VIAL IVP PRN (09:10)
--- NOTE | 2019-10-16 09:13 | ANESTHESIA ---
Pre-Anesthesia VS, & Labs - Diagnosis active labor - Procedure SUELLEN Vital Signs: Temp Pulse Resp BP Pulse Ox 37.0 C 75 16 123/63 97 10/16/19 07:26 10/16/19 07:26 10/16/19 07:26 10/16/19 07:26 10/16/19 06:34 Height 5 ft 4 in Weight (kg) 71.668 kg Body Mass Index 19.7 - Is Patient ?: Yes - Lab Results Current Lab Results: Laboratory Tests 10/16/19 07:35: WBC 7.7, RBC 4.17 L, Hgb 13.0, Hct 37.7, MCV 90.4, MCH 31.2 H, MCHC 34.5, RDW 13.2, Plt Count 197, MPV 11.5 H, Neut # (Auto) 5.0, Lymph # (Auto) 2.0, [place] # (Auto) 0.6, Eos # (Auto) 0.0, Baso # (Auto) 0.0, Absolute Nucleated RBC 0.00, Nucleated RBC % 0.0 Lab results reviewed: Yes Fish Bones: 10/16/19 07:35 Home Medications and Allergies Active Medications Carboprost Tromethamine (Hemabate) 250 mcg IM Q15M PRN PRN Reason: Step 4: Hemorrhage protocol Fentanyl (Fentanyl) 100 mcg IVP Q1H PRN PRN Reason: PAIN Lactated Ringer's (Lr) 1,000 mls @ 150 mls/hr IV .Q6H40M [place] Last Infusion: 10/16/19 09:00 Dose: 75 mls/hr Documented by: Oxytocin/Sodium Chloride (Pitocin/Sodium Chloride) 500 mls @ 999 mls/hr IV PRN PRN; Protocol PRN Reason: POST- HEMORR PREVENTION Stop: 10/21/19 06:42 Tranexamic Acid 1,000 mg/ (Sodium Chloride) 110 mls @ 660 mls/hr IV .ONCE PRN PRN Reason: EBL >1200mL and within 3hr Stop: 10/21/19 06:37 Lidocaine HCl (Xylocaine-Mpf 1% Vial) 30 ml ID .ONCE PRN PRN Reason: PERINEAL REPAIR Stop: 10/21/19 06:37 Methylergonovine Maleate (Methergine Inj) 0.2 mg IM .ONCE PRN PRN Reason: Step 2: Hemorrhage protocol Stop: 10/21/19 06:37 Misoprostol (Cytotec) 800 mcg BC .ONCE PRN PRN Reason: Step 3: Hemorrhage protocol Stop: 10/21/19 06:37 Ondansetron HCl (Zofran Inj) 4 mg IVP Q4H PRN PRN Reason: Nausea / Vomiting Oxytocin (Pitocin) 10 unit IM .ONCE PRN PRN Reason: Step one: If no IV access Stop: 10/21/19 06:37 Sodium Chloride (Normal Saline Flush 0.9%) 10 ml IVP PRN PRN PRN Reason: NEEDED PER PROVIDER ORDERS Multivitamin [Multiple Vitamins] 02/14/18 Allergies/Adverse Reactions: Allergies Allergy/AdvReac Type Severity Reaction Status Date / Time Penicillins Allergy Edema Verified 02/14/18 10:32 Anes History & Medical History - Anesthetic History Anesthesia Complications: reports: No previous complications Family history of Anesthesia Complications: Denies Family history of Malignant Hyperthermia: Denies - Medical History Cardiovascular: reports: None Pulmonary: reports: None Gastrointestinal: reports: None Urinary: reports: None Musculoskeletal: reports: None Endocrine/Autoimmune: reports: None Skin: reports: None Smoking Status: Former smoker Exam General: Alert, Oriented x3, Cooperative, No acute distress Plan Anesthesia Type: Epidural Consent for Procedure(s) Verified and Reviewed: Yes Code Status: Attempt Resuscitation ASA classification: 2-Mild systemic disease Is this case an emergency?: No
--- NOTE | 2019-10-16 09:17 | ANESTHESIA PROCEDURE NOTE ---
Diagnosis: active labor Procedure: SUELLEN Consent for Procedure(s) Verified and Reviewed: Yes Height and Weight: Height 5 ft 4 in Weight (kg) 71.668 kg Body Mass Index 19.7 Vital Signs: Temp Pulse Resp BP Pulse Ox 37.0 C 75 16 123/63 97 10/16/19 07:26 10/16/19 07:26 10/16/19 07:26 10/16/19 07:26 10/16/19 06:34 Allergies Penicillins Allergy (Verified 02/14/18 10:32) Edema EDEMA/RASH Requesting Provider: Setfania Location: [facility] ASA classification: 2-Mild systemic disease Is this case an emergency?: No Anes. Monitoring and Equipment: Non-invasive BP, Pulse oximetery, Sterile prep and drape Anes. Procedure Start Time: 08:32 Anes. Procedure Stop Time: 09:00 Procedure Notes: Discussed epidural risks and consent obtained. Skin prepped and draped, Localized with Lidocaine 1%, Epidural [place] at 5.5 cm, DPE performed with 25ga Sandrita needle, catheter placed 12 cm at skin, Bolus of Fentanyl 100 mcg and Bupivicaine 0.25% given, patient had immediate relief, Pump started with settings of 8 mL/hr continuous, PCEA 4 mL q 20 min
--- NOTE | 2019-10-16 09:20 | ANESTHESIA PROCEDURE NOTE ---
Anesthesia Epidural Template - Patient Report Patient Reports: positive: Pain controlled - Side Effects : - Exam Epidural Medication Information: Ropivicaine 0.2% 8 mL/hr, PCEA 4 mL q 20 min - Plan Plan: positive: Continue current management
[2019-10-16] MEDS ORDERED: OXYTOCIN/SODIUM CHLORIDE 500 ML IV SCH (10:00)
--- NOTE | 2019-10-16 13:02 | PROVIDER PROGRESS NOTE ---
Subjective - Subjective Subjective: In pain with epidural Category 1 NST [place] now q1-3, palpate moderate SVE now 4cm and stretchy Continue pitocin to achieve adequte UC pattern, redose epidural, anticipate Objective - Vital Signs/Intake & Output Vital Signs: Vital Signs x48h Temp Pulse Pulse Resp BP BP Pulse Ox 10/16/19 07:26 98.6 F 75 16 123/63 10/16/19 06:34 99.0 F 77 16 125/68 97 Intake & Output: Intake & Output 10/13/19 10/14/19 10/15/19 10/16/19 23:59 23:59 23:59 23:59 Intake Total 158.333 Output Total 250 Balance -91.667 - Lab Results Fish Bones: 10/16/19 07:35 Other Labs: Lab Results x24hrs 10/16/19 10/16/19 Range/Units 08:55 07:35 WBC 7.7 (4.8-10.8) x10^3/uL RBC 4.17 L (4.20-5.40) 10^6/uL Hgb 13.0 (12.0-16.0) g/dL Hct 37.7 (37.0-47.0) % MCV 90.4 (81.0-99.0) fL MCH 31.2 H (27.0-31.0) pg MCHC 34.5 (32.0-36.0) g/dL RDW 13.2 (12.0-15.0) % Plt Count 197 (130-450) 10^3/uL MPV 11.5 H (7.9-10.8) fL Neut # (Auto) 5.0 (1.5-6.6) 10^3/uL Lymph # (Auto) 2.0 (1.5-3.5) 10^3/uL [place] # (Auto) 0.6 (0.0-1.0) 10^3/uL Eos # (Auto) 0.0 (0.0-0.7) 10^3/uL Baso # (Auto) 0.0 (0.0-0.1) 10^3/uL Absolute Nucleated RBC 0.00 x10^3/uL Nucleated RBC % 0.0 /100WBC Blood Type A POSITIVE Antibody Screen NEGATIVE
[2019-10-16] MEDS ORDERED: ONDANSETRON ODT 4 MG TABLET TL PRN (14:21)
[2019-10-16] MEDS ORDERED: WITCH HAZEL/GLYCERIN 1 PAD TOP PRN (14:21)
[2019-10-16] MEDS ORDERED: HYDROCORTISONE 1% CREAM 28 GM TUBE PR PRN (14:21)
[2019-10-16] MEDS ORDERED: SIMETHICONE CHEW 80 MG TABLET PO PRN (14:21)
[2019-10-16] MEDS ORDERED: diphenhydrAMINE 25 MG CAPSULE PO PRN (14:21)
[2019-10-16] MEDS: ACETAMINOPHEN 500 MG TABLET PO SCH ×2 (15:13→23:04)
[2019-10-16] MEDS: IBUPROFEN 600 MG TABLET PO SCH ×2 (15:14→20:57)
--- NOTE | 2019-10-16 17:27 | DELIVERY NOTE ---
Delivery Note - Labor Labor: positive: Augmented by oxytocin - Delivery Method Delivery Method: positive: Spontaneous vaginal delivery - Presentation Presentation: positive: Vertex - Nuchal Cord Nuchal Cord: positive: None - Amniotic Fluid Description Amniotic Fluid Description: positive: Clear - Episiotomy Type Episiotomy Type: positive: None - Laceration Laceration: positive: Periurethral (bilateral, superficial, no repair needed) - Delivery Outcome Delivery Outcome: positive: Livebirth - : positive: Placed in direct skin contact with mother, Stimulated, [place], [place] used sex: positive: Female : 8 : 9 - Cord Cord: positive: 3 vessels - Placenta Placenta: positive: Intact, Spontaneous - Estimated Blood Loss Estimated Blood Loss (in cc): 50 - Post Delivery Events Post Delivery Events: positive: No post delivery events
[2019-10-17] MEDS: IBUPROFEN 600 MG TABLET PO SCH ×2 (02:58→09:06)
[2019-10-17] MEDS: ACETAMINOPHEN 500 MG TABLET PO SCH (06:51)
[2019-10-17] MEDS: DOCUSATE SODIUM 100 MG CAPSULE PO SCH (09:07)
[2019-10-17 11:55] VITALS: BP 102/52
--- NOTE | 2019-10-17 13:53 | Discharge Plan ---
Discharge Plan Problem Reviewed?: Yes Disposition: Home, Self Care Condition: Good Diet: Regular Activity Restrictions: No Restrictions Shower Restrictions: No Driving Restrictions: No No Smoking: If you smoke, Please STOP! Call for help. Follow-up with: Daniella Morales ARNP [Provider Admit Priv/Credential] - 6 Weeks (6w mirena IUD )
--- NOTE | 2019-10-17 14:24 | DISCHARGE SUMMARY ---
Physician: Radha Aguiar MD DATE OF ADMISSION: 10/16/2019 DATE OF DISCHARGE: 10/17/2019 ADMISSION DIAGNOSES 1. Intrauterine at 38 weeks. 2. Spontaneous rupture of membranes. DISCHARGE DIAGNOSES: Status post spontaneous vaginal delivery. OPERATIONS AND PROCEDURES: On 10/16/2019, spontaneous vaginal delivery of a liveborn female, uncompl icated. HOSPITAL COURSE: The patient was admitted after rupturing her membranes at home. She required Pitoc in augmentation and received an epidural for pain control. Her delivery was uncomplicated and so was her course. By day #1, she was requesting discharge home. She was eating, am bulating, urinating and without difficulties. She did not have any problems with pain control, bleeding or mood. She is afebrile with normal vital signs. Alert and pleasant, in no appar ent distress. Abdomen soft, nontender, nondistended. Fundus firm, nontender and at the umbilicus. No lower extremity clubbing, cyanosis or edema. The patient is Rh positive and rubella immune and decli barbara vaccination. DISCHARGE MEDICATIONS: Start iron and resume vitamins. CONDITION: Good. FOLLOWUP: Six weeks for Mirena IUD insertion. TD: 10/17/2019 14:04
--- NOTE | 2019-10-17 15:05 | Labor Flowsheet ---
Labor Flowsheet Datetime Report Generated by CPN: 10/17/2019 15:05 Datetime: 10/17/2019 11:45 VITAL SIGNS NBP Sys/Pearl/Mean (mmHg): 102 : 52 : 65 Pulse: 59 SpO2 (%): 100 Datetime: 10/16/2019 17:48 Respirations: 16 Temperature (C): 36.7 Datetime: 10/16/2019 14:05 MEDICATIONS Pitocin (milliunits): Increased to @ 125ml Datetime: 10/16/2019 14:00 Stage of : Recovery Datetime: 10/16/2019 13:59 UTERINE ACTIVITY Monitor Mode: External Frequency (min): 2-4 Quality: Strong Duration (sec): 40-70 Pattern: Normal: <= 5 Contractions in 10 Minutes Resting Tone (Palpate): Relaxed ASSESSMENT A Monitor Mode: Telemetry FHR Baseline Rate : 130 Variability: Moderate 6-25 bpm Accelerations: None Decelerations: Early; Variable Category: Category II PATIENT CARE Oxygen Method: Room Air Datetime: 10/16/2019 13:54 STAGE 2 Pushing: Coached on Pushing; No Urge to Push Pushing Position: Pushing with Contractions; Pushing Lithotomy Pushing Progress: Descent with Pushing COMMUNICATION Communication: Provider at Bedside Datetime: 10/16/2019 13:49 Provider Notified (Name): Dr Stefania Communication Comments: MD notified pt complete ready to push, MD on her way from clinic Datetime: 10/16/2019 13:48 Exam by: Jessica Jack RN Vaginal Exam Comments: complete Datetime: 10/16/2019 13:45 LaborFlag: Labor Datetime: 10/16/2019 12:59 Comments: mod to min cecile, interrupted tracing possible variable Pain Assessment Comments: 3/10 after epidural adjustment Datetime: 10/16/2019 12:53 PAIN Pain Coping: Talking Through Contractions Datetime: 10/16/2019 12:44 Monitor Interventions for FHR: Ultrasound Adjusted Datetime: 10/16/2019 12:37 Epidural Procedure Other: Single Dose Anesthesia Comments: bridgette aube here for epidural bolus per pt request. Datetime: 10/16/2019 12:34 Provider Reviewed Strip: Yes Notification Reason: Labor Status; Uterine Activity; Pain Datetime: 10/16/2019 12:30 FHR Baseline Changes: No Baseline Change Datetime: 10/16/2019 12:29 VAGINAL EXAM Dilatation (cm): 4.0 Effacement (%): 70 Station: 0 Vaginal Bleeding: None Cervix, Consistency: Soft Cervix, Position: Midposition Datetime: 10/16/2019 12:06 Pitocin Checklist: At Least 1 Acceleration of 15 bpm x 15 Seconds in 30 Minutes or Adequate Variabi lity; No More than 1 Late Deceleration Occurred in Past 30 Minutes; No More than 2 Variable Decelerat ions > 60 Seconds in Duration and decreasing >60 bpm in 30 minutes; No More than 5 Uterine Contractio ns in 10 Minutes for any 20 Minute Interval; Uterus Palpates Soft between Contractions Datetime: 10/16/2019 11:48 Monitor Interventions for UA: Altha Adjusted Datetime: 10/16/2019 11:43 Patient Care Comments: high throne Datetime: 10/16/2019 11:29 I/O Interventions: Eric Cath Inserted Datetime: 10/16/2019 08:57 Epidural Procedure: Completed Datetime: 10/16/2019 08:33 PROCEDURE TIME OUT Procedure Verify: Correct Patient Identity; Correct Side and Site are Marked; Accurate Procedure Co nsent Form; Agreement on Procedure to be Done; Correct Patient Position; Addressed Need to Administer Antibiotics or Fluids for Irrigation; Safety Precautions Based on Patient History or Medication Use ANESTHESIA Anesthesia Plans: Epidural Epidural Positioning: Sitting
== END 2019-10-17 14:50 | disposition home or self-care (01) | DRG 807 ==
LOC: WFO 06:03 → FBP 06:08 → WFO 06:37 → FBP 06:37
PROVIDERS: ADMIT Obstetrics & Gynecology; ATTEND Obstetrics & Gynecology
PROC: 10E0XZZ Delivery of Products of Conception, External Approach (ICD-10-PCS; principal; 2019-10-16)
DX: O71.82 Other specified trauma to perineum and vulva (principal); Z37.0 Single live birth; Z3A.38 38 weeks gestation of pregnancy; Z86.59 Personal history of other mental and behavioral disorders; Z87.891 Personal history of nicotine dependence
CPT/HCPCS: 85025; 86850; 86900; 86901; 99213; A9270; J7120

== ENCOUNTER 2020-10-01 11:18 | Emergency (ER) | payer MEDICAID ==
--- NOTE | 2020-10-01 13:13 | XRAY Report ---
PROCEDURE: Chest 1 View X-Ray INDICATIONS: Short of breath TECHNIQUE: One view of the chest was acquired. COMPARISON: None FINDINGS: Surgical changes and devices: None. Lungs and pleura: Right middle lower lobe infiltrate medially obscures the right heart border Mediastinum: Mediastinal contours appear normal. Heart size is normal. Bones and chest wall: No suspicious bony lesions. Overlying soft tissues appear unremarkable. IMPRESSION: Right middle lobe infiltrate consistent with pneumonia Reviewed by: Supa Marroquin MD on 10/01/2020 12:12 PM AKDT Approved by: Supa Marroquin MD on 10/01/2020 12:12 PM AKDT Station ID: [id number]
[2020-10-01] MEDS ORDERED: LIDOCAINE 1% 2 ML VIAL MC ONE (13:42)
[2020-10-01] MEDS ORDERED: DEXAMETHASONE 10 MG/ML VIAL PO STA (13:42)
[2020-10-01] MEDS ORDERED: cefTRIAXone 1 GM VIAL IM STA (13:42)
[2020-10-01] MEDS ORDERED: CHERRY SYRUP 10 ML UDC PO ONE (13:42)
--- NOTE | 2020-10-01 13:42 | ED Physician Documentation ---
PD HPI URI - Stated complaint Stated Complaint: SOA - Chief complaint Chief Complaint: General - History obtained from History obtained from: Patient, Family - History of Present Illness Timing - onset: How many days ago (4) Timing duration: Days (4) Timing details: Gradual onset, Still present Associated symptoms: Fever, Chills, Sweats, Nasal congestion, Dry cough, Chest pain, Dyspnea Contributing factors: Travel (from [facility]). No: Sick contact Improves by: Rest Worsened by: Activity Similar symptoms before: Has not had sx before Recently seen: Not recently seen - Additional information Additional information: Previously well 25-year-old female has developed URI symptoms about 4 days ago that progressed to where she has now developed chest pain with respiration, fever, chills, myalgias. She is not immunized against Covid. Review of Systems Constitutional: reports: Fever, Chills, Myalgias, Fatigue Eyes: denies: Decreased vision Ears: denies: Ear pain Nose: denies: Rhinorrhea / runny nose, Congestion Throat: denies: Sore throat Cardiac: reports: Chest pain / pressure. denies: Palpitations, Pedal edema, Calf pain Respiratory: reports: Dyspnea, Cough, Wheezing GI: reports: Nausea, Vomiting. 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 HEENT: None Psych: Anxiety, Obsessive compulsive disorder Musculoskeletal: None Derm: None - Past Surgical History Past Surgical History: Yes /BOARD WORKER: Dilation and currettage - Present Medications Home Medications: Ambulatory Orders Medication Instructions Recorded Confirmed Albuterol Sulf [Ventolin Hfa 1 - 2 puffs INH Q4HR PRN #1 inhaler 10/01/20 Inhaler] Amox/Clav 875/125 [Augmentin] 1 each PO Q12H #20 tablet 10/01/20 Azithromycin [Zithromax] 250 mg PO DAILY #6 tablet 10/01/20 - Allergies Allergies/Adverse Reactions: Allergies Allergy/AdvReac Type Severity Reaction Status Date / Time Penicillins Allergy Edema Verified 10/01/20 11:41 - Social History Does the pt smoke?: Yes Smoking Status: Current every day smoker Does the pt drink ETOH?: No Does the pt have substance abuse?: Yes Substance Use and Type: Marijuana - Immunizations Immunizations are current?: Yes PD ED PE NORMAL - Vitals Vital signs reviewed: Yes (normal ) - General General: Alert and oriented X 3, No acute distress, Well developed/nourished - HEENT HEENT: Atraumatic, PERRL, EOMI, Ears normal, Other (dry mucous membranes ) - Neck Neck: Supple, no meningeal sign, No bony TTP - Cardiac Cardiac: RRR, No murmur - Respiratory Respiratory: No respiratory distress, Other (high pitched squeek to the right middle lobe. ) - Abdomen Abdomen: Soft, Non tender - Back Back: No CVA TTP, No spinal TTP - Derm Derm: Normal color, Warm and dry, No rash - Extremities Extremities: No deformity, No edema - Neuro Neuro: Alert and oriented X 3, e commerce architect 2-12 intact, No motor deficit, No sensory deficit, Normal speech Eye Opening: Spontaneous Motor: Obeys Commands Verbal: Oriented GCS Score: 15 - Psych Psych: Normal mood, Normal affect Results - Vitals Vitals: Vital Signs - 24 hr 10/01/20 10/01/20 11:43 14:18 Temperature 37.3 C Heart Rate 92 78 Respiratory 18 12 Rate Blood Pressure 118/70 O2 Saturation 96 Oxygen O2 Source Room air - Rads (name of study) chest Radiology: Prelim report reviewed (Impression: Right middle lobe infiltrate consistent with pneumonia.), EMP read indepedently, See rad report PD MEDICAL DECISION MAKING - ED course Complexity details: reviewed old records, reviewed results, re-evaluated patient, considered differential, d/w patient, d/w family ED course: 25-year-old female with fever cough and congestion chest pain has an infiltrate on chest x-ray consistent with pneumonia. She is tested for Covid with a reference test. She is administered Rocephin IM as well as dexamethasone and a DuoNeb treatment. Departure - Departure Disposition: 01 Home, Self Care Clinical Impression: Pneumonia Qualifiers: Pneumonia type: due to unspecified organism Laterality: right Lung location: middle lobe of lung Qualified Code(s): J18.9 - Pneumonia, unspecified organism Condition: Stable Instructions: ED Pneumonia Adult Follow-Up: Manny Leonardo MD [Primary Care Provider] - Prescriptions: Albuterol Sulf [Ventolin Hfa Inhaler] 1 - 2 puffs INH Q4HR PRN #1 inhaler PRN Reason: Shortness Of Air/Wheezing Amox/Clav 875/125 [Augmentin] 1 each PO Q12H #20 tablet Azithromycin [Zithromax] 250 mg PO DAILY #6 tablet Forms: Activity restrictions
[2020-10-01] MEDS ORDERED: IPRATROPIUM/ALBUTEROL 3 ML NEB INH STA (13:45)
[2020-10-01] MEDS ORDERED: ALBUTEROL 1 PUFF INH STA (13:58)
[2020-10-01 15:32] VITALS: BP 114/63
== END 2020-10-01 15:32 | disposition home or self-care (01) ==
LOC: ED 11:18
DX: J18.9 Pneumonia, unspecified organism (principal); Z20.822 Contact with and (suspected) exposure to COVID-19; F17.200 Nicotine dependence, unspecified, uncomplicated
CPT/HCPCS: 71045; 87635; 94640; 94664; 96372; 99283; 99284; A9270

== ENCOUNTER 2020-12-10 10:51 | Emergency (ER) | payer MEDICAID ==
[2020-12-10] MEDS ORDERED: PHENAZOPYRIDINE 100 MG TABLET PO STA (11:14)
[2020-12-10] MEDS ORDERED: NITROFURANTOIN MACRO 100 MG CAPSULE PO STA (11:14)
--- NOTE | 2020-12-10 11:18 | ED Physician Documentation ---
PD HPI FEMALE - Stated complaint Stated Complaint: FEMALE - Chief complaint Chief Complaint: UTI - History obtained from History obtained from: Patient - History of Present Illness Timing - onset: How many days ago (3) Timing - duration: Days (3) Timing - details: Gradual onset Pain level max: 0, 2 Pain level max: 0 Associated symptoms: Dysuria, Urinary frequency, Hematuria. 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 HEENT: None Psych: Anxiety, Obsessive compulsive disorder Musculoskeletal: None Derm: None - Past Surgical History Past Surgical History: Yes /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 and 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 - Present Medications Home Medications: Ambulatory Orders Medication Instructions Recorded Confirmed Albuterol Sulf [Ventolin Hfa 1 - 2 puffs INH Q4HR PRN #1 inhaler 10/01/20 Inhaler] Amox/Clav 875/125 [Augmentin] 1 each PO Q12H #20 tablet 10/01/20 Azithromycin [Zithromax] 250 mg PO DAILY #6 tablet 10/01/20 Nitrofurantoin [Macrobid] 100 mg PO BID #10 cap 12/10/20 Phenazopyridine HCl [Pyridium] 200 mg PO TID PRN #6 tablet 12/10/20 - Allergies Allergies/Adverse Reactions: Allergies Allergy/AdvReac Type Severity Reaction Status Date / Time Penicillins Allergy Edema Verified 12/10/20 11:04 - Social History Does the pt smoke?: Yes Smoking Status: Current every day smoker Does the pt drink ETOH?: No Does the pt have substance abuse?: Yes - Immunizations Immunizations are current?: Yes PD ED PE NORMAL - Vitals Vital signs reviewed: Yes - General General: Alert and oriented X 3, No acute distress - HEENT HEENT: Moist mucous membranes - Neck Neck: Supple, no meningeal sign - Cardiac Cardiac: RRR, Strong equal pulses - Respiratory Respiratory: No respiratory distress, Clear bilaterally - Abdomen Abdomen: Soft, Non tender, Non distended - Back Back: No CVA TTP - Derm Derm: Warm and dry - Neuro Neuro: Alert and oriented X 3 - Psych Psych: Normal mood, Normal affect Results - Vitals Vitals: Vital Signs - 24 hr 12/10/20 12/10/20 11:02 11:43 Temperature 37.2 C Heart Rate 73 70 Respiratory 16 Rate Blood Pressure 121/67 127/78 O2 Saturation 100 Oxygen O2 Source Room air - Labs Labs: Laboratory Tests 12/10/20 11:08 Urine Color YELLOW Urine Clarity HAZY Urine pH 6.0 Ur Specific Datto 1.025 Urine Protein NEGATIVE Urine Glucose (UA) NEGATIVE Urine Ketones NEGATIVE Urine Occult Blood MODERATE H Urine Nitrite NEGATIVE Urine Bilirubin NEGATIVE Urine Urobilinogen 0.2 (NORMAL) Ur Leukocyte Esterase SMALL H Urine RBC 11-25 H Urine WBC 11-25 H Ur Squamous Epith Cells MOD Squamous H Urine Bacteria Moderate H Ur Microscopic Review INDICATED Urine Culture Comments NOT INDICATED Urine HCG, Qual NEGATIVE PD MEDICAL DECISION MAKING - ED course Complexity details: reviewed results, re-evaluated patient, considered differential, d/w patient ED course: Patient is well-appearing, nontoxic. Afebrile. Appears to have a UTI. Will prescribe antibiotics for home. No evidence of pyelonephritis or sepsis. Patient counseled regarding signs and symptoms for which I believe and urgent re- evaluation would be necessary. Patient with good understanding of and agreement to plan and is comfortable going home at this time This document was made in part using voice recognition software. While efforts are made to proofread this document, sound alike and grammatical errors may occur. Departure - Departure Disposition: 01 Home, Self Care Clinical Impression: Urinary tract infection Qualifiers: Urinary tract infection type: acute cystitis Hematuria presence: without hematuria Qualified Code(s): N30.00 - Acute cystitis without hematuria Condition: Good Instructions: ED UTI Cystitis Female Follow-Up: your,doctor as needed [Other] Prescriptions: Nitrofurantoin [Macrobid] 100 mg PO BID #10 cap Phenazopyridine HCl [Pyridium] 200 mg PO TID PRN #6 tablet PRN Reason: dysuria Comments: Take all antibiotics until gone. Return if you worsen. Your prescriptions were sent to the [facility] pharmacy today. Discharge Date/Time: 12/10/20 11:44
[2020-12-10 11:22] LABS: BILIRUBIN,URINE NEGATIVE (NEGATIVE); CLARITY,URINE HAZY (CLEAR); GLUCOSE, URINE (UA) NEGATIVE (NEGATIVE); KETONES,URINE (UA) NEGATIVE (NEGATIVE); LEUKOCYTE ESTERASE, URINE SMALL (NEGATIVE); NITRITE,URINE NEGATIVE (NEGATIVE); OCCULT BLOOD,URINE MODERATE (NEGATIVE); PROTEIN,URINE NEGATIVE (NEGATIVE); UROBILINOGEN,URINE 0.2 (NORMAL) E.U./dL (NORMAL)
[2020-12-10 11:24] LABS: HCG UR QUAL NEGATIVE
[2020-12-10 11:32] LABS: BACTERIA,URINE Moderate /HPF (None Seen); SQUAMOUS EPITHELIAL CELL,UR MOD Squamous (<= Few)
[2020-12-10 11:44] VITALS: BP 127/78
== END 2020-12-10 11:44 | disposition home or self-care (01) ==
LOC: ED 10:51
DX: N30.00 Acute cystitis without hematuria (principal); F17.200 Nicotine dependence, unspecified, uncomplicated
CPT/HCPCS: 81001; 81025; 99283; A9270; 81003; 87086

== ENCOUNTER 2021-03-18 13:39 | Emergency (ER) | payer MEDICAID ==
[2021-03-18 13:47] VITALS: BP 136/85
[2021-03-18] MEDS ORDERED: cephALEXin 250 MG CAPSULE PO STA (13:55)
--- NOTE | 2021-03-18 13:55 | ED Physician Documentation ---
PD HPI SKIN - Stated complaint Stated Complaint: CHIN PX - Chief complaint Chief Complaint: Wound - History obtained from History obtained from: Patient (Developed a scratch on her chin a few days ago and then has developed a small painful lesion there. No fevers or chills.) Review of Systems Constitutional: reports: Reviewed and negative Eyes: reports: Reviewed and negative Nose: reports: Reviewed and negative Throat: reports: Reviewed and negative PD PAST MEDICAL HISTORY - Past Medical History Cardiovascular: None Respiratory: None Neuro: None Endocrine/Autoimmune: None GI: None FLOW SPECIALIST: Miscarriage(s) : None HEENT: None Psych: Anxiety, Obsessive compulsive disorder Musculoskeletal: None Derm: None - Past Surgical History Past Surgical History: Yes /FLOW SPECIALIST: Dilation and currettage - Present Medications Home Medications: Ambulatory Orders Medication Instructions Recorded Confirmed Albuterol Sulf [Ventolin Hfa 1 - 2 puffs INH Q4HR PRN #1 inhaler 10/01/20 Inhaler] Amox/Clav 875/125 [Augmentin] 1 each PO Q12H #20 tablet 10/01/20 Azithromycin [Zithromax] 250 mg PO DAILY #6 tablet 10/01/20 Nitrofurantoin [Macrobid] 100 mg PO BID #10 cap 12/10/20 Phenazopyridine HCl [Pyridium] 200 mg PO TID PRN #6 tablet 12/10/20 Mupirocin 2% Oint [Bactroban 2% 1 applic TOP BID #50 gm 03/18/21 Oint] cephALEXin [Keflex] 500 mg PO Q6H #20 cap 03/18/21 - Allergies Allergies/Adverse Reactions: Allergies Allergy/AdvReac Type Severity Reaction Status Date / Time Penicillins Allergy Edema Verified 03/18/21 13:47 - Social History Does the pt smoke?: Yes Smoking Status: Current every day smoker Does the pt drink ETOH?: No Does the pt have substance abuse?: Yes - Immunizations Immunizations are current?: Yes - POLST Patient has POLST: No PD ED PE NORMAL - Vitals Vital signs reviewed: Yes - General General: Alert and oriented X 3, No acute distress - HEENT HEENT: Other (She has a small area of impetigo just to the right of midline on the anterior mandible below the lip.) - Neuro Neuro: Alert and oriented X 3, Normal speech Results - Vitals Vitals: Vital Signs - 24 hr 03/18/21 13:44 Temperature 36.6 C Heart Rate 99 Respiratory 20 Rate Blood Pressure 136/85 H O2 Saturation 100 Oxygen O2 Source Room air Departure - Departure Disposition: 01 Home, Self Care Clinical Impression: Impetigo Condition: Good Record reviewed to determine appropriate education?: Yes Instructions: Impetigo Prescriptions: Mupirocin 2% Oint [Bactroban 2% Oint] 1 applic TOP BID #50 gm cephALEXin [Keflex] 500 mg PO Q6H #20 cap Comments: I sent your prescription electronically to [facility] in [place].
== END 2021-03-18 14:12 | disposition home or self-care (01) ==
LOC: ED 13:39
DX: L01.00 Impetigo, unspecified (principal); F17.200 Nicotine dependence, unspecified, uncomplicated
CPT/HCPCS: 99282; 99283; A9270

== ENCOUNTER 2021-08-16 19:11 | Emergency (ER) | payer MEDICAID ==
--- OUTSIDE RECORDS SUMMARY | 2021-08-16 19:30 | EXTERNAL MEDICAL SUMMARY RPT | Continuity of Care Document ---
:1995 Author Organization [facility] Address [address] [place] [address] Phone Allergies and Intolerances date description facility type (no date) [facility] (unknown) Encounters No information. Functional Status No information. Immunizations No information. Medications No information. Problems No information. Procedures date description facility [id number] [facility] Results/Labs test date author facility value unit interpret ation Result panel 1 (unknown) (no (unknown) (unknown) (no value) (units (unk nown) date) unknown) (unknown) (no (unknown) (unknown) (no value) (units (unk nown) date) unknown) (unknown) (no (unknown) (unknown) [address] [place] [address] (units (unknown) date) unknown) (unknown) (no (unknown) (unknown) [place], [place] (units ( unknown) date) [id number] unknown) (unknown) (no (unknown) (unknown) [facility] (units (unknown) date) unknown) (unknown) (no (unknown) (unknown) Signed (units (unkno wn) date) unknown) (unknown) (no (unknown) (unknown) Ultrasound (units (unk nown) date) Report unknown) (unknown) (no (unknown) (unknown) (no value) (units (unk nown) date) unknown) (unknown) (no (unknown) (unknown) 05/22/21 (units (unkno wn) date) unknown) (unknown) (no (unknown) (unknown) 1. Small solid (units (unknown) date) appearing left unknown) ovarian mass is nonspecific. The differential (unknown) (no (unknown) (unknown) 1.6 x 1.7 cm, (units ( unknown) date) there is patent unknown) arterial flow demonstrated within the ovaries. (unknown) (no (unknown) (unknown) Additional (units (unk nown) date) endovaginal unknown) scanning was necessary due to incomplete visualization (unknown) (no (unknown) (unknown) Approved by: (units (u nknown) date) Asa Mott, unknownShayy Rosas on 05/22/2021 at 20:55 (unknown) (no (unknown) (unknown) COMPARISON: CT, (units (unknown) date) CT-IVP, unknown) 06/23/2010, 9:59. (unknown) (no (unknown) (unknown) Dictated by: (units (u nknown) date) Asa Mott, unknown) Alison on 05/22/2021 at 20:39 (unknown) (no (unknown) (unknown) FINDINGS: (units (unkn own) date) unknown) (unknown) (no (unknown) (unknown) IMPRESSION: (units (un known) date) unknown) (unknown) (no (unknown) (unknown) INDICATIONS: (units (u nknown) date) LEFT PELVIC PAIN unknown) (unknown) (no (unknown) (unknown) Other: No (units (unk nown) date) pathologic free unknown) abdominal or pelvic fluid. (unknown) (no (unknown) (unknown) Ovaries: The (units ( unknown) date) left ovary unknown) measures 2.9 x 1.9 x 3.7 cm and the right ovary (unknown) (no (unknown) (unknown) Real-time (units (unkn own) date) scanning was unknown) performed of the pelvic organs, with image (unknown) (no (unknown) (unknown) TECHNIQUE: (units (unk nown) date) unknown) (unknown) (no (unknown) (unknown) Uterus: Uterus (units (unknown) date) is anteverted and unknown) measures 9.3 x 4.0 x 5.6 cm. The endometrium (unknown) (no (unknown) (unknown) We strive to (units (u nknown) date) produce accurate, unknown) complete, and clear reports of imaging services. (unknown) (no (unknown) (unknown) adnexal and (units (un known) date) endometrial unknown) structures by transabdominal scanning. (unknown) (no (unknown) (unknown) and voice (units (unkn own) date) recognition unknown) software. Therefore, it may contain abnormal punctuation, (unknown) (no (unknown) (unknown) endometrioma or (units (unknown) date) ovarian neoplasm. unknown) Further evaluation may be obtained with a (unknown) (no (unknown) (unknown) if clinically (units ( unknown) date) indicated unknown) (unknown) (no (unknown) (unknown) insertions (units (unk nown) date) and/or omissions. unknown) Occasional wrong-word or sound-alike substitutions (unknown) (no (unknown) (unknown) internal (units (unkno wn) date) vascularity on unknown) Doppler interrogation. (unknown) (no (unknown) (unknown) left ovarian (units (u nknown) date) isoechoic oval unknown) mass measuring 2.9 x 1.9 x 2.3 cm. This (unknown) (no (unknown) (unknown) occur. Though we (units (unknown) date) review the report unknown) and make efforts to correct it, we do (unknown) (no (unknown) (unknown) position, (units (unkn own) date) extending into unknown) the fundal endometrium. (unknown) (no (unknown) (unknown) the report be (units ( unknown) date) read carefully in unknown) proper context to recognize any text (unknown) (no (unknown) (unknown) up to 0.3 cm in (units (unknown) date) combined unknown) thickness. There is an IUD which appears in (unknown) (no (unknown) (unknown) us in improving (units (unknown) date) patient care, unknown) this report was composed using standard report (unknown) (no (unknown) (unknown) [id number] (units (unkno wn) date) unknown) (unknown) (no (unknown) (unknown) Accession (units (unkn own) date) Number: unknown) [id number] (unknown) (no (unknown) (unknown) Age/Sex: 25 / F (units (unknown) date) Date of unknown) Service: (unknown) (no (unknown) (unknown) : 1995 (units (unknown) date) Acct:[id number] unknown) (unknown) (no (unknown) (unknown) Loc: ED (units (unkno wn) date) unknown) (unknown) (no (unknown) (unknown) Ordering (units (unkno wn) date) Provider: unknown) CrewIrene (unknown) (no (unknown) (unknown) PROCEDURE: US (units (unknown) date) PELVIC COMPLETE unknown) (unknown) (no (unknown) (unknown) Patient: (units (unkno wn) date) Veronica Jane unknown) MR#: [id number] (unknown) (no (unknown) (unknown) Procedure: US (units ( unknown) date) pelvic complete unknown) (unknown) (no (unknown) (unknown) There is a (units (unk nown) date) unknown) (unknown) (no (unknown) (unknown) To assist (units (unkn own) date) unknown) (unknown) (no (unknown) (unknown) appropriate (units (un known) date) unknown) (unknown) (no (unknown) (unknown) demonstrates (units (u nknown) date) unknown) (unknown) (no (unknown) (unknown) documentation. (units (unknown) date) unknown) (unknown) (no (unknown) (unknown) inaccuracies. (units ( unknown) date) unknown) (unknown) (no (unknown) (unknown) includes an (units (un known) date) unknown) (unknown) (no (unknown) (unknown) may (units (unkno wn) date) unknown) (unknown) (no (unknown) (unknown) measures (units (unkno wn) date) unknown) (unknown) (no (unknown) (unknown) measures 3.4 x (units (unknown) date) unknown) (unknown) (no (unknown) (unknown) of the (units (unkno wn) date) unknown) (unknown) (no (unknown) (unknown) pelvic MRI (units (unk nown) date) unknown) (unknown) (no (unknown) (unknown) recommend that (units (unknown) date) unknown) (unknown) (no (unknown) (unknown) templates (units (unkn own) date) unknown) Result panel 2 (unknown) (no (unknown) (unknown) (no value) (units (unk nown) date) unknown) (unknown) (no (unknown) (unknown) Radiologist's (units ( unknown) date) Impression: unknown) (unknown) (no (unknown) (unknown) (no value) (units (unk nown) date) unknown) (unknown) (no (unknown) (unknown) Date of (units (unkno wn) date) Service: unknown) 05/22/21 (unknown) (no (unknown) (unknown) (no value) (units (unk nown) date) unknown) (unknown) (no (unknown) (unknown) Allergies (units (unkn own) date) unknown) (unknown) (no (unknown) (unknown) ED Orders (units (unkn own) date) unknown) (unknown) (no (unknown) (unknown) Emergency (units (unkn own) date) Report unknown) (unknown) (no (unknown) (unknown) [facility] (units (unknown) date) [address] unknown) [place] [address] (unknown) (no (unknown) (unknown) Point of Care (units ( unknown) date) Testing unknown) (unknown) (no (unknown) (unknown) Stop: 05/22/21 (units (unknown) date) 21:17 unknown) (unknown) (no (unknown) (unknown) Urine Dip (units (unkn own) date) unknown) (unknown) (no (unknown) (unknown) Vital Signs - 8 (units (unknown) date) hr unknown) (unknown) (no (unknown) (unknown) (no value) (units (unk nown) date) unknown) (unknown) (no (unknown) (unknown) 05/22/21 (units (unkno wn) date) unknown) (unknown) (no (unknown) (unknown) [id number] (units (unkno wn) date) unknown) (unknown) (no (unknown) (unknown) 05/22/21 19:05 (units (unknown) date) unknown) (unknown) (no (unknown) (unknown) 18:46 (units (unkno wn) date) unknown) (unknown) (no (unknown) (unknown) ?Small solid (units (u nknown) date) appearing left unknown) ovarian mass is nonspecific.? The differential (unknown) (no (unknown) (unknown) Age/Sex: 25 / F (units (unknown) date) unknown) (unknown) (no (unknown) (unknown) Allergy/AdvReac (units (unknown) date) Type Severity unknown) Reaction Status Date / Time (unknown) (no (unknown) (unknown) Bedside Urine (units ( unknown) date) Bilirubin unknown) - Negative (unknown) (no (unknown) (unknown) Bedside Urine (units ( unknown) date) Glucose unknown) Negative (unknown) (no (unknown) (unknown) Bedside Urine (units ( unknown) date) Ketone - unknown) Negative (unknown) (no (unknown) (unknown) Bedside Urine (units ( unknown) date) Leukocytes unknown) - Negative (unknown) (no (unknown) (unknown) Bedside Urine (units ( unknown) date) Nitrite - unknown) Negative (unknown) (no (unknown) (unknown) Bedside Urine (units ( unknown) date) Occult Blood unknown) - Negative (unknown) (no (unknown) (unknown) Bedside Urine (units ( unknown) date) Protein - unknown) Negative (unknown) (no (unknown) (unknown) Bedside Urine (units ( unknown) date) Urobilinogen unknown) - Negative (unknown) (no (unknown) (unknown) Bedside Urine (units ( unknown) date) pH 6.0 unknown) (unknown) (no (unknown) (unknown) Blood Pressure (units (unknown) date) 134/69 unknown) 05/22/21 18:46 (unknown) (no (unknown) (unknown) Blood Pressure (units (unknown) date) 134/69 unknown) (unknown) (no (unknown) (unknown) Chief (units (unkno wn) date) Complaint: unknown) Abdominal Pain (unknown) (no (unknown) (unknown) Course (units (o wn) date) unknown) (unknown) (no (unknown) (unknown) : 1995 (units (unknown) date) unknown) Acct:[id number] (unknown) (no (unknown) (unknown) Discontinued (units (u nknown) date) Medications unknown) (unknown) (no (unknown) (unknown) ER Physician: (units ( unknown) date) Ronnell Sage unknown) (unknown) (no (unknown) (unknown) Esterase (units (unkno wn) date) unknown) (unknown) (no (unknown) (unknown) Exam (units (unkno wn) date) unknown) (unknown) (no (unknown) (unknown) General (units (unkno wn) date) unknown) (unknown) (no (unknown) (unknown) HPI - Abdominal (units (unknown) date) Pain unknown) (unknown) (no (unknown) (unknown) HPI narrative: (units (unknown) date) unknown) (unknown) (no (unknown) (unknown) History of (units (unk nown) date) Present Illness unknown) (unknown) (no (unknown) (unknown) Ibuprofen (units (unkn own) date) (Ibuprofen 400 unknown) Mg Tablet) 400 mg PO NOW ONE (unknown) (no (unknown) (unknown) Imaging Data (units (u nknown) date) unknown) (unknown) (no (unknown) (unknown) Initial Vital (units ( unknown) date) Signs unknown) (unknown) (no (unknown) (unknown) Initial Vital (units ( unknown) date) Signs: unknown) (unknown) (no (unknown) (unknown) Lab Data (units (unkno wn) date) unknown) (unknown) (no (unknown) (unknown) MDM - Abdominal (units (unknown) date) Pain unknown) (unknown) (no (unknown) (unknown) Mode of (units (unkno wn) date) arrival: unknown) Ambulatory (unknown) (no (unknown) (unknown) Ordered: (units (unkno wn) date) unknown) (unknown) (no (unknown) (unknown) Orders (units (unkno wn) date) unknown) (unknown) (no (unknown) (unknown) Patient History (units (unknown) date) unknown) (unknown) (no (unknown) (unknown) Patient: (units (unkno wn) date) Veronica Jane E unknown) MR#: [id number] (unknown) (no (unknown) (unknown) Pelvic (units (unkno wn) date) ultrasound: unknown) (unknown) (no (unknown) (unknown) Penicillins (units (un known) date) Allergy unknown) Intermediate Hives Verified 05/22/21 18:49 (unknown) (no (unknown) (unknown) Point of care (units ( unknown) date) testing: unknown) (unknown) (no (unknown) (unknown) Test (units (unknown) date) Results unknown) Negative (unknown) (no (unknown) (unknown) Pulse Oximetry (units (unknown) date) 100 05/22/21 unknown) 18:46 (unknown) (no (unknown) (unknown) Pulse Oximetry (units (unknown) date) 100 unknown) (unknown) (no (unknown) (unknown) Pulse Rate 79 (units (unknown) date) 05/22/21 18:46 unknown) (unknown) (no (unknown) (unknown) Pulse Rate 79 (units ( unknown) date) unknown) (unknown) (no (unknown) (unknown) Related Data (units (u nknown) date) unknown) (unknown) (no (unknown) (unknown) Respiratory (units (un known) date) Rate 18 unknown) 05/22/21 18:46 (unknown) (no (unknown) (unknown) Respiratory (units (un known) date) Rate 18 unknown) (unknown) (no (unknown) (unknown) Signed By: (units (unk nown) date) unknown) (unknown) (no (unknown) (unknown) Smoking Status: (units (unknown) date) Current every unknown) day smoker (unknown) (no (unknown) (unknown) Smoking Status: (units (unknown) date) Current every unknown) day smoker (unknown) (no (unknown) (unknown) Social History (units (unknown) date) unknown) (unknown) (no (unknown) (unknown) Source: patient (units (unknown) date) unknown) (unknown) (no (unknown) (unknown) Stated (units (unkno wn) date) Complaint: LLQ unknown) abd pain (unknown) (no (unknown) (unknown) Substance Use (units ( unknown) date) Type: marijuana unknown) (unknown) (no (unknown) (unknown) Temperature (units (un known) date) 98.2 F unknown) 05/22/21 18:46 (unknown) (no (unknown) (unknown) Temperature (units (un known) date) 98.2 F unknown) (unknown) (no (unknown) (unknown) The patient (units (unk nown) date) presents with unknown) left lower quadrant abdominal pain. She has a history (unknown) (no (unknown) (unknown) Time Seen by (units (u nknown) date) Provider: unknown) 05/22/21 21:16 (unknown) (no (unknown) (unknown) US pelvic (units (unkn own) date) complete Stat unknown) (unknown) (no (unknown) (unknown) Urine Specific (units (unknown) date) [place] 1.020 unknown) (unknown) (no (unknown) (unknown) Vital Signs (units (un known) date) unknown) (unknown) (no (unknown) (unknown) Vital signs: (units (u nknown) date) unknown) (unknown) (no (unknown) (unknown) alcohol intake (units (unknown) date) frequency: unknown) holidays/special occasions only (unknown) (no (unknown) (unknown) bulging mass. (units ( unknown) date) She has no unknown) nausea, vomiting, diarrhea or constipation. She has (unknown) (no (unknown) (unknown) endometrioma or (units (unknown) date) ovarian unknown) neoplasm. (unknown) (no (unknown) (unknown) includes an (units (un known) date) unknown) (unknown) (no (unknown) (unknown) menstrual (units (unkn own) date) cycles are unknown) regular. The pain is sharp and stabbing. She has no back (unknown) (no (unknown) (unknown) no vaginal (units (unk nown) date) discharge. She unknown) has no fever or chills. (unknown) (no (unknown) (unknown) of ovarian (units (unk nown) date) cyst. The pains unknown) is suggestive of ovarian cyst. She has an IUD in (unknown) (no (unknown) (unknown) pain, no (units (unkno wn) date) dysuria or unknown) hematuria. She does have a history of hernias, there is no (unknown) (no (unknown) (unknown) place. She had (units (unknown) date) bleeding about 1 unknown) month ago that lasted for 2 days. Overall, Result panel 3 (unknown) (no (unknown) (unknown) (no value) (units (unk nown) date) unknown) (unknown) (no (unknown) (unknown) Radiologist's (units ( unknown) date) Impression: unknown) (unknown) (no (unknown) (unknown) (no value) (units (unk nown) date) unknown) (unknown) (no (unknown) (unknown) Date of (units (unkno wn) date) Service: unknown) 05/22/21 (unknown) (no (unknown) (unknown) (no value) (units (unk nown) date) unknown) (unknown) (no (unknown) (unknown) Allergies (units (unkn own) date) unknown) (unknown) (no (unknown) (unknown) ED Orders (units (unkn own) date) unknown) (unknown) (no (unknown) (unknown) Emergency (units (unkn own) date) Report unknown) (unknown) (no (unknown) (unknown) [facility] (units (unknown) date) [address] unknown) [place] [address] (unknown) (no (unknown) (unknown) Point of Care (units ( unknown) date) Testing unknown) (unknown) (no (unknown) (unknown) Stop: 05/22/21 (units (unknown) date) 21:17 unknown) (unknown) (no (unknown) (unknown) Urine Dip (units (unkn own) date) unknown) (unknown) (no (unknown) (unknown) Vital Signs - 8 (units (unknown) date) hr unknown) (unknown) (no (unknown) (unknown) (no value) (units (unk nown) date) unknown) (unknown) (no (unknown) (unknown) 05/22/21 (units (unkno wn) date) unknown) (unknown) (no (unknown) (unknown) Mass of left (units (u nknown) date) ovary unknown) (unknown) (no (unknown) (unknown) [id number] (units (unkno wn) date) unknown) (unknown) (no (unknown) (unknown) 05/22/21 19:05 (units (unknown) date) unknown) (unknown) (no (unknown) (unknown) 18:46 (units (unkno wn) date) unknown) (unknown) (no (unknown) (unknown) ?Small solid (units (u nknown) date) appearing left unknown) ovarian mass is nonspecific.? The differential (unknown) (no (unknown) (unknown) Activity (units (unkno wn) date) Restrictions/Add unknown) itional Instructions: (unknown) (no (unknown) (unknown) Advil 2 tablets (units (unknown) date) every 6 hours as unknown) needed for pain. (unknown) (no (unknown) (unknown) Age/Sex: 25 / F (units (unknown) date) unknown) (unknown) (no (unknown) (unknown) Allergy/AdvReac (units (unknown) date) Type Severity unknown) Reaction Status Date / Time (unknown) (no (unknown) (unknown) Bedside Urine (units ( unknown) date) Bilirubin unknown) - Negative (unknown) (no (unknown) (unknown) Bedside Urine (units ( unknown) date) Glucose unknown) Negative (unknown) (no (unknown) (unknown) Bedside Urine (units ( unknown) date) Ketone - unknown) Negative (unknown) (no (unknown) (unknown) Bedside Urine (units ( unknown) date) Leukocytes unknown) - Negative (unknown) (no (unknown) (unknown) Bedside Urine (units ( unknown) date) Nitrite - unknown) Negative (unknown) (no (unknown) (unknown) Bedside Urine (units ( unknown) date) Occult Blood unknown) - Negative (unknown) (no (unknown) (unknown) Bedside Urine (units ( unknown) date) Protein - unknown) Negative (unknown) (no (unknown) (unknown) Bedside Urine (units ( unknown) date) Urobilinogen unknown) - Negative (unknown) (no (unknown) (unknown) Bedside Urine (units ( unknown) date) pH 6.0 unknown) (unknown) (no (unknown) (unknown) Blood Pressure (units (unknown) date) 134/69 unknown) 05/22/21 18:46 (unknown) (no (unknown) (unknown) Blood Pressure (units (unknown) date) 134/69 unknown) (unknown) (no (unknown) (unknown) Chief (units (unkno wn) date) Complaint: unknown) Abdominal Pain (unknown) (no (unknown) (unknown) Clinical (units (unkno wn) date) Impression: unknown) (unknown) (no (unknown) (unknown) Course (units (unkno wn) date) unknown) (unknown) (no (unknown) (unknown) : 1995 (units (unknown) date) unknown) Acct:[id number] (unknown) (no (unknown) (unknown) Departure (units (unkn own) date) unknown) (unknown) (no (unknown) (unknown) Discharge Plan (units (unknown) date) unknown) (unknown) (no (unknown) (unknown) Discontinued (units (u nknown) date) Medications unknown) (unknown) (no (unknown) (unknown) ER Physician: (units ( unknown) date) Ronnell Sage unknown) (unknown) (no (unknown) (unknown) Esterase (units (unkno wn) date) unknown) (unknown) (no (unknown) (unknown) Exam (units (unkno wn) date) unknown) (unknown) (no (unknown) (unknown) Staplehurst,Elizabeth, (units (unknown) date) [Physician] - unknown) (unknown) (no (unknown) (unknown) Follow-up with (units (unknown) date) your provider unknown) could feel, I would suggest a gynecology (unknown) (no (unknown) (unknown) General (units (unkno wn) date) unknown) (unknown) (no (unknown) (unknown) HPI - Abdominal (units (unknown) date) Pain unknown) (unknown) (no (unknown) (unknown) HPI narrative: (units (unknown) date) unknown) (unknown) (no (unknown) (unknown) History of (units (unk nown) date) Present Illness unknown) (unknown) (no (unknown) (unknown) I will give you (units (unknown) date) contact unknown) information for our on-call ultrasound spec if you have (unknown) (no (unknown) (unknown) Ibuprofen (units (unkn own) date) (Ibuprofen 400 unknown) Mg Tablet) 400 mg PO NOW ONE (unknown) (no (unknown) (unknown) Imaging Data (units (u nknown) date) unknown) (unknown) (no (unknown) (unknown) Initial Vital (units ( unknown) date) Signs unknown) (unknown) (no (unknown) (unknown) Initial Vital (units ( unknown) date) Signs: unknown) (unknown) (no (unknown) (unknown) Instructions: (units ( unknown) date) DI for Pelvic unknown) Pain (unknown) (no (unknown) (unknown) Lab Data (units (unkno wn) date) unknown) (unknown) (no (unknown) (unknown) MDM - Abdominal (units (unknown) date) Pain unknown) (unknown) (no (unknown) (unknown) Mode of (units (unkno wn) date) arrival: unknown) Ambulatory (unknown) (no (unknown) (unknown) Ordered: (units (unkno wn) date) unknown) (unknown) (no (unknown) (unknown) Orders (units (unkno wn) date) unknown) (unknown) (no (unknown) (unknown) Patient (units (unkno wn) date) Disposition: unknown) Home (unknown) (no (unknown) (unknown) Patient History (units (unknown) date) unknown) (unknown) (no (unknown) (unknown) Patient: (units (unkno wn) date) Veronica Jane unknown) MR#: [id number] (unknown) (no (unknown) (unknown) Pelvic (units (unkno wn) date) ultrasound: unknown) (unknown) (no (unknown) (unknown) Penicillins (units (un known) date) Allergy unknown) Intermediate Hives Verified 05/22/21 18:49 (unknown) (no (unknown) (unknown) Point of care (units ( unknown) date) testing: unknown) (unknown) (no (unknown) (unknown) Test (units (unknown) date) Results unknown) Negative (unknown) (no (unknown) (unknown) Pulse Oximetry (units (unknown) date) 100 05/22/21 unknown) 18:46 (unknown) (no (unknown) (unknown) Pulse Oximetry (units (unknown) date) 100 unknown) (unknown) (no (unknown) (unknown) Pulse Rate 79 (units (unknown) date) 05/22/21 18:46 unknown) (unknown) (no (unknown) (unknown) Pulse Rate 79 (units ( unknown) date) unknown) (unknown) (no (unknown) (unknown) Referrals: (units (unk nown) date) unknown) (unknown) (no (unknown) (unknown) Related Data (units (u nknown) date) unknown) (unknown) (no (unknown) (unknown) Respiratory (units (un known) date) Rate 18 unknown) 05/22/21 18:46 (unknown) (no (unknown) (unknown) Respiratory (units (un known) date) Rate 18 unknown) (unknown) (no (unknown) (unknown) Signed By: (units (unk nown) date) unknown) (unknown) (no (unknown) (unknown) Smoking Status: (units (unknown) date) Current every unknown) day smoker (unknown) (no (unknown) (unknown) Smoking Status: (units (unknown) date) Current every unknown) day smoker (unknown) (no (unknown) (unknown) Social History (units (unknown) date) unknown) (unknown) (no (unknown) (unknown) Source: patient (units (unknown) date) unknown) (unknown) (no (unknown) (unknown) Stated (units (unkno wn) date) Complaint: LLQ unknown) abd pain (unknown) (no (unknown) (unknown) Substance Use (units ( unknown) date) Type: marijuana unknown) (unknown) (no (unknown) (unknown) Temperature (units (un known) date) 98.2 F unknown) 05/22/21 18:46 (unknown) (no (unknown) (unknown) Temperature (units (un known) date) 98.2 F unknown) (unknown) (no (unknown) (unknown) The patient (units (unk nown) date) presents with unknown) left lower quadrant abdominal pain. She has a history (unknown) (no (unknown) (unknown) Time Seen by (units (u nknown) date) Provider: unknown) 05/22/21 21:16 (unknown) (no (unknown) (unknown) US pelvic (units (unkn own) date) complete Stat unknown) (unknown) (no (unknown) (unknown) Urine Specific (units (unknown) date) [place] 1.020 unknown) (unknown) (no (unknown) (unknown) Vital Signs (units (un known) date) unknown) (unknown) (no (unknown) (unknown) Vital signs: (units (u nknown) date) unknown) (unknown) (no (unknown) (unknown) alcohol intake (units (unknown) date) frequency: unknown) holidays/special occasions only (unknown) (no (unknown) (unknown) appointment. (units (u nknown) date) unknown) (unknown) (no (unknown) (unknown) bulging mass. (units ( unknown) date) She has no unknown) nausea, vomiting, diarrhea or constipation. She has (unknown) (no (unknown) (unknown) difficulty with (units (unknown) date) a consult unknown) through your primary care provider. (unknown) (no (unknown) (unknown) endometrioma or (units (unknown) date) ovarian unknown) neoplasm. (unknown) (no (unknown) (unknown) includes an (units (un known) date) unknown) (unknown) (no (unknown) (unknown) menstrual (units (unkn own) date) cycles are unknown) regular. The pain is sharp and stabbing. She has no back (unknown) (no (unknown) (unknown) no vaginal (units (unk nown) date) discharge. She unknown) has no fever or chills. (unknown) (no (unknown) (unknown) of ovarian (units (unk nown) date) cyst. The pains unknown) is suggestive of ovarian cyst. She has an IUD in (unknown) (no (unknown) (unknown) pain, no (units (unkno wn) date) dysuria or unknown) hematuria. She does have a history of hernias, there is no (unknown) (no (unknown) (unknown) place. She had (units (unknown) date) bleeding about 1 unknown) month ago that lasted for 2 days. Overall, Result panel 4 (unknown) (no (unknown) (unknown) (no value) (units (unk nown) date) unknown) (unknown) (no (unknown) (unknown) Radiologist's (units ( unknown) date) Impression: unknown) (unknown) (no (unknown) (unknown) (no value) (units (unk nown) date) unknown) (unknown) (no (unknown) (unknown) Date of (units (unkno wn) date) Service: unknown) 05/22/21 (unknown) (no (unknown) (unknown) (no value) (units (unk nown) date) unknown) (unknown) (no (unknown) (unknown) <Electronically (units (unknown) date) signed by Ronnell unknownShayy Sage MD> (unknown) (no (unknown) (unknown) 05/23/21 0923 (units ( unknown) date) unknown) (unknown) (no (unknown) (unknown) Allergies (units (unkn own) date) unknown) (unknown) (no (unknown) (unknown) Documented by: (units (unknown) date) CTRALICIA unknown) (unknown) (no (unknown) (unknown) Emergency (units (unkn own) date) Report unknown) (unknown) (no (unknown) (unknown) [facility] (units (unknown) date) [address] unknown) [place] [address] (unknown) (no (unknown) (unknown) Last Admin: (units (un known) date) 05/22/21 21:31 unknown) Dose: 400 mg (unknown) (no (unknown) (unknown) Point of Care (units ( unknown) date) Testing unknown) (unknown) (no (unknown) (unknown) Stop: 05/22/21 (units (unknown) date) 21:17 unknown) (unknown) (no (unknown) (unknown) Urine Dip (units (unkn own) date) unknown) (unknown) (no (unknown) (unknown) Vital Signs - 8 (units (unknown) date) hr unknown) (unknown) (no (unknown) (unknown) (no value) (units (unk nown) date) unknown) (unknown) (no (unknown) (unknown) 05/22/21 (units (unkno wn) date) unknown) (unknown) (no (unknown) (unknown) Mass of left (units (u nknown) date) ovary unknown) (unknown) (no (unknown) (unknown) [id number] (units (unkno wn) date) unknown) (unknown) (no (unknown) (unknown) 18:46 (units (unkno wn) date) unknown) (unknown) (no (unknown) (unknown) ?Small solid (units (u nknown) date) appearing left unknown) ovarian mass is nonspecific.? The differential (unknown) (no (unknown) (unknown) Activity (units (unkno wn) date) Restrictions/Add unknown) itional Instructions: (unknown) (no (unknown) (unknown) Advil 2 tablets (units (unknown) date) every 6 hours as unknown) needed for pain. (unknown) (no (unknown) (unknown) Age/Sex: 25 / F (units (unknown) date) unknown) (unknown) (no (unknown) (unknown) Allergy/AdvReac (units (unknown) date) Type Severity unknown) Reaction Status Date / Time (unknown) (no (unknown) (unknown) Auscultation: (units ( unknown) date) clear to unknown) auscultation bilaterally (unknown) (no (unknown) (unknown) Back/Spine/Pelv (units (unknown) date) is unknown) (unknown) (no (unknown) (unknown) Back: No CVA (units (u nknown) date) tenderness unknown) (unknown) (no (unknown) (unknown) Bedside Urine (units ( unknown) date) Bilirubin unknown) - Negative (unknown) (no (unknown) (unknown) Bedside Urine (units ( unknown) date) Glucose unknown) Negative (unknown) (no (unknown) (unknown) Bedside Urine (units ( unknown) date) Ketone - unknown) Negative (unknown) (no (unknown) (unknown) Bedside Urine (units ( unknown) date) Leukocytes unknown) - Negative (unknown) (no (unknown) (unknown) Bedside Urine (units ( unknown) date) Nitrite - unknown) Negative (unknown) (no (unknown) (unknown) Bedside Urine (units ( unknown) date) Occult Blood unknown) - Negative (unknown) (no (unknown) (unknown) Bedside Urine (units ( unknown) date) Protein - unknown) Negative (unknown) (no (unknown) (unknown) Bedside Urine (units ( unknown) date) Urobilinogen unknown) - Negative (unknown) (no (unknown) (unknown) Bedside Urine (units ( unknown) date) pH 6.0 unknown) (unknown) (no (unknown) (unknown) Blood Pressure (units (unknown) date) 134/69 unknown) 05/22/21 18:46 (unknown) (no (unknown) (unknown) Blood Pressure (units (unknown) date) 134/69 unknown) (unknown) (no (unknown) (unknown) Cardio (units (unkno wn) date) unknown) (unknown) (no (unknown) (unknown) Chief (units (unkno wn) date) Complaint: unknown) Abdominal Pain (unknown) (no (unknown) (unknown) Clinical (units (unkno wn) date) Impression: unknown) (unknown) (no (unknown) (unknown) Const (units (unkno wn) date) unknown) (unknown) (no (unknown) (unknown) Course (units (unkno wn) date) unknown) (unknown) (no (unknown) (unknown) Course (units (unkno wn) date) Narrative: unknown) (unknown) (no (unknown) (unknown) : 1995 (units (unknown) date) unknown) Acct:[id number] (unknown) (no (unknown) (unknown) Departure (units (unkn own) date) unknown) (unknown) (no (unknown) (unknown) Discharge Plan (units (unknown) date) unknown) (unknown) (no (unknown) (unknown) Discontinued (units (u nknown) date) Medications unknown) (unknown) (no (unknown) (unknown) ER Physician: (units ( unknown) date) Ronnell Sage unknown) (unknown) (no (unknown) (unknown) Effort + (units (unkno wn) date) Inspection: unknown) normal respiratory effort (unknown) (no (unknown) (unknown) Esterase (units (unkno wn) date) unknown) (unknown) (no (unknown) (unknown) Exam (units (unkno wn) date) unknown) (unknown) (no (unknown) (unknown) Elizabeth Johnson, (units (unknown) date) [Physician] - unknown) (unknown) (no (unknown) (unknown) Follow-up with (units (unknown) date) your provider unknown) could feel, I would suggest a gynecology (unknown) (no (unknown) (unknown) GI (units (unkno wn) date) unknown) (unknown) (no (unknown) (unknown) General (units (unkno wn) date) unknown) (unknown) (no (unknown) (unknown) General: (units (unkno wn) date) cooperative, unknown) healthy appearing, comfortable, well developed and well (unknown) (no (unknown) (unknown) HPI - Abdominal (units (unknown) date) Pain unknown) (unknown) (no (unknown) (unknown) HPI narrative: (units (unknown) date) unknown) (unknown) (no (unknown) (unknown) Heart Sounds: (units ( unknown) date) S1 normal and S2 unknown) normal (unknown) (no (unknown) (unknown) History of (units (unk nown) date) Present Illness unknown) (unknown) (no (unknown) (unknown) I will give you (units (unknown) date) contact unknown) information for our on-call ultrasound spec if you have (unknown) (no (unknown) (unknown) Ibuprofen (units (unkn own) date) (Ibuprofen 400 unknown) Mg Tablet) 400 mg PO NOW ONE (unknown) (no (unknown) (unknown) Imaging Data (units (u nknown) date) unknown) (unknown) (no (unknown) (unknown) Initial Vital (units ( unknown) date) Signs unknown) (unknown) (no (unknown) (unknown) Initial Vital (units ( unknown) date) Signs: unknown) (unknown) (no (unknown) (unknown) Instructions: (units ( unknown) date) DI for Pelvic unknown) Pain (unknown) (no (unknown) (unknown) L LQ tenderness (units (unknown) date) without masses, unknown) distention or guarding. Normal bowel sounds. (unknown) (no (unknown) (unknown) Lab Data (units (unkno wn) date) unknown) (unknown) (no (unknown) (unknown) MDM - Abdominal (units (unknown) date) Pain unknown) (unknown) (no (unknown) (unknown) Medical History (units (unknown) date) (Updated unknown) 05/23/21 @ 09:20 by Ronnell Sage MD) (unknown) (no (unknown) (unknown) Mode of (units (o wn) date) arrival: unknown) Ambulatory (unknown) (no (unknown) (unknown) Narrative: (units (unk nown) date) unknown) (unknown) (no (unknown) (unknown) No peritoneal (units ( unknown) date) signs. No unknown) suprapubic tenderness. No RLQ tenderness. (unknown) (no (unknown) (unknown) Ordered: (units (unkno wn) date) unknown) (unknown) (no (unknown) (unknown) Orders (units (unkno wn) date) unknown) (unknown) (no (unknown) (unknown) Other: (units (unkno wn) date) unknown) (unknown) (no (unknown) (unknown) Ovarian cyst (units (u nknown) date) unknown) (unknown) (no (unknown) (unknown) Patient (units (unkno wn) date) Disposition: unknown) Home (unknown) (no (unknown) (unknown) Patient History (units (unknown) date) unknown) (unknown) (no (unknown) (unknown) Patient: (units (unkno wn) date) Stock,Britnie E unknown) MR#: [id number] (unknown) (no (unknown) (unknown) Pelvic (units (unkno wn) date) ultrasound: unknown) (unknown) (no (unknown) (unknown) Penicillins (units (un known) date) Allergy unknown) Intermediate Hives Verified 05/22/21 18:49 (unknown) (no (unknown) (unknown) Point of care (units ( unknown) date) testing: unknown) (unknown) (no (unknown) (unknown) Test (units (unknown) date) Results unknown) Negative (unknown) (no (unknown) (unknown) Pulse Oximetry (units (unknown) date) 100 05/22/21 unknown) 18:46 (unknown) (no (unknown) (unknown) Pulse Oximetry (units (unknown) date) 100 unknown) (unknown) (no (unknown) (unknown) Pulse Rate 79 (units (unknown) date) 05/22/21 18:46 unknown) (unknown) (no (unknown) (unknown) Pulse Rate 79 (units ( unknown) date) unknown) (unknown) (no (unknown) (unknown) Rate: regular (units ( unknown) date) rate unknown) (unknown) (no (unknown) (unknown) Referrals: (units (unk nown) date) unknown) (unknown) (no (unknown) (unknown) Related Data (units (u nknown) date) unknown) (unknown) (no (unknown) (unknown) Resp (units (unkno wn) date) unknown) (unknown) (no (unknown) (unknown) Respiratory (units (un known) date) Rate 18 unknown) 05/22/21 18:46 (unknown) (no (unknown) (unknown) Respiratory (units (un known) date) Rate 18 unknown) (unknown) (no (unknown) (unknown) Review of (units (unkn own) date) Systems unknown) (unknown) (no (unknown) (unknown) Rhythm: regular (units (unknown) date) rhythm unknown) (unknown) (no (unknown) (unknown) See HPI. (units (unkno wn) date) unknown) (unknown) (no (unknown) (unknown) Signed By: (units (unk nown) date) unknown) (unknown) (no (unknown) (unknown) Smoking Status: (units (unknown) date) Current every unknown) day smoker (unknown) (no (unknown) (unknown) Smoking Status: (units (unknown) date) Current every unknown) day smoker (unknown) (no (unknown) (unknown) Social History (units (unknown) date) (Reviewed unknown) 05/23/21 @ 09:20 by Ronnell Sage MD) (unknown) (no (unknown) (unknown) Source: patient (units (unknown) date) unknown) (unknown) (no (unknown) (unknown) Stated (units (unkno wn) date) Complaint: LLQ unknown) abd pain (unknown) (no (unknown) (unknown) Substance Use (units ( unknown) date) Type: marijuana unknown) (unknown) (no (unknown) (unknown) Temperature (units (un known) date) 98.2 F unknown) 05/22/21 18:46 (unknown) (no (unknown) (unknown) Temperature (units (un known) date) 98.2 F unknown) (unknown) (no (unknown) (unknown) The patient (units (unk nown) date) presents with unknown) left lower quadrant abdominal pain. She has a history (unknown) (no (unknown) (unknown) Time Seen by (units (u nknown) date) Provider: unknown) 05/22/21 21:16 (unknown) (no (unknown) (unknown) Ultrasounds the (units (unknown) date) results were unknown) discussed with the patient. There is no (unknown) (no (unknown) (unknown) Urine Specific (units (unknown) date) [place] 1.020 unknown) (unknown) (no (unknown) (unknown) Vital Signs (units (un known) date) unknown) (unknown) (no (unknown) (unknown) Vital signs: (units (u nknown) date) unknown) (unknown) (no (unknown) (unknown) alcohol intake (units (unknown) date) frequency: unknown) holidays/special occasions only (unknown) (no (unknown) (unknown) appointment. (units (u nknown) date) unknown) (unknown) (no (unknown) (unknown) bulging mass. (units ( unknown) date) She has no unknown) nausea, vomiting, diarrhea or constipation. She has (unknown) (no (unknown) (unknown) difficulty with (units (unknown) date) a consult unknown) through your primary care provider. (unknown) (no (unknown) (unknown) endometrioma or (units (unknown) date) ovarian unknown) neoplasm. (unknown) (no (unknown) (unknown) follow-up. Her (units (unknown) date) pain is not that unknown) severe on evaluation. She feels ibuprofen (unknown) (no (unknown) (unknown) groomed (units (unkno wn) date) unknown) (unknown) (no (unknown) (unknown) includes an (units (un known) date) unknown) (unknown) (no (unknown) (unknown) menstrual (units (unkn own) date) cycles are unknown) regular. The pain is sharp and stabbing. She has no back (unknown) (no (unknown) (unknown) no vaginal (units (unk nown) date) discharge. She unknown) has no fever or chills. (unknown) (no (unknown) (unknown) of ovarian (units (unk nown) date) cyst. The pains unknown) is suggestive of ovarian cyst. She has an IUD in (unknown) (no (unknown) (unknown) pain, no (units (unkno wn) date) dysuria or unknown) hematuria. She does have a history of hernias, there is no (unknown) (no (unknown) (unknown) place. She had (units (unknown) date) bleeding about 1 unknown) month ago that lasted for 2 days. Overall, (unknown) (no (unknown) (unknown) she should be (units ( unknown) date) able to start unknown) there to obtain a Gynecology consult. (unknown) (no (unknown) (unknown) significant (units (un known) date) cyst, but there unknown) is a structure on the left ovary that is worse (unknown) (no (unknown) (unknown) would be (units (unkno wn) date) appropriate. unknown) Her primary care provider is in [place], [place]. She felt Social History date description facility (no date) Smokes tobacco daily (finding) [facility] Vital Signs date measurement value units [id number] BMI BMI 20.2 kg/m2 [id number] BP_diastolic BP_diastolic 69 mm[H g] +0000 BP_systolic BP_systolic 134 mm[Hg] +0000 heart_rate heart_rate 79 /min +0000 height_metric height_metric 162.56 cm +0000 height_standard height_standard 64 in +0000 respiration_rate respiration_rate 18 /min +0000 temperature_metric temperature_metric 36.78 C +0000 temperature_standard temperature_standard 9 8.2 F +0000 weight_metric weight_metric 53.52 kg +0000 weight_standard weight_standard 117.99 lb
[2021-08-16 19:34] LABS: BILIRUBIN,URINE NEGATIVE (NEGATIVE); GLUCOSE, URINE (UA) NEGATIVE (NEGATIVE); KETONES,URINE (UA) NEGATIVE (NEGATIVE); LEUKOCYTE ESTERASE, URINE SMALL (NEGATIVE); NITRITE,URINE NEGATIVE (NEGATIVE); OCCULT BLOOD,URINE MODERATE (NEGATIVE); PROTEIN,URINE 100 mg/dL (NEGATIVE); UROBILINOGEN,URINE 0.2 (NORMAL) E.U./dL (NORMAL)
[2021-08-16 19:35] LABS: CLARITY,URINE HAZY (CLEAR)
[2021-08-16 19:47] LABS: BACTERIA,URINE Moderate /HPF (None Seen); SQUAMOUS EPITHELIAL CELL,UR FEW Squamous (<= Few); WBC,URINE >25 /HPF (0-5)
--- NOTE | 2021-08-16 19:48 | ED Physician Documentation ---
PD HPI ABD PAIN - Stated complaint Stated Complaint: BACK PAIN - Chief complaint Chief Complaint: Back Pain - History obtained from History obtained from: Patient - Additional information Additional information: 25-year-old woman with history of frequent UTIs developed relatively sudden onset nonmigratory right flank pain starting this morning. Its not too severe and declines pain medication for it. She denies frequency, dysuria, hematuria. No history of renal colic. No vomiting or fevers. Review of Systems Constitutional: denies: Fever, Chills Ears: reports: Reviewed and negative Cardiac: reports: Reviewed and negative Respiratory: reports: Reviewed and negative PD PAST MEDICAL HISTORY - Past Medical History Past Medical History: Yes Cardiovascular: None Respiratory: None Neuro: None Endocrine/Autoimmune: None GI: None SOLUTIONS SPECIALIST: Miscarriage(s) : None HEENT: None Psych: Anxiety, Obsessive compulsive disorder Musculoskeletal: None Derm: None - Past Surgical History Past Surgical History: Yes /SOLUTIONS SPECIALIST: Dilation and currettage - Present Medications Home Medications: Ambulatory Orders Medication Instructions Recorded Confirmed Albuterol Sulf [Ventolin Hfa 1 - 2 puffs INH Q4HR PRN #1 inhaler 10/01/20 Inhaler] Amox/Clav 875/125 [Augmentin] 1 each PO Q12H #20 tablet 10/01/20 Azithromycin [Zithromax] 250 mg PO DAILY #6 tablet 10/01/20 Nitrofurantoin [Macrobid] 100 mg PO BID #10 cap 12/10/20 Phenazopyridine HCl [Pyridium] 200 mg PO TID PRN #6 tablet 12/10/20 Mupirocin 2% Oint [Bactroban 2% 1 applic TOP BID #50 gm 03/18/21 Oint] cephALEXin [Keflex] 500 mg PO Q6H #20 cap 03/18/21 Ciprofloxacin HCl [Cipro] 500 mg PO BID #20 tablet 08/16/21 - Allergies Allergies/Adverse Reactions: Allergies Allergy/AdvReac Type Severity Reaction Status Date / Time Penicillins Allergy Edema Verified 08/16/21 19:22 - Social History Does the pt smoke?: Yes Smoking Status: Current every day smoker Does the pt drink ETOH?: No Does the pt have substance abuse?: Yes - Immunizations Immunizations are current?: Yes - POLST Patient has POLST: No PD ED PE NORMAL - Vitals Vital signs reviewed: Yes - General General: Alert and oriented X 3, No acute distress - Abdomen Abdomen: Normal bowel sounds, Soft, Other (Mild tenderness to the right flank and right upper quadrant without surgical signs) - Neuro Neuro: Alert and oriented X 3, Normal speech Results - Vitals Vitals: Vital Signs - 24 hr 08/16/21 08/16/21 19:17 21:10 Temperature 36.8 C 36.7 C Heart Rate 89 88 Respiratory 14 15 Rate Blood Pressure 153/79 H 144/72 H O2 Saturation 100 99 Oxygen O2 Source Room air - Labs Labs: Laboratory Tests 08/16/21 08/16/21 19:26 19:40 Urine Color YELLOW Urine Clarity HAZY Urine pH 8.0 H Ur Specific [place] 1.015 Urine Protein 100 H Urine Glucose (UA) NEGATIVE Urine Ketones NEGATIVE Urine Occult Blood MODERATE H Urine Nitrite NEGATIVE Urine Bilirubin NEGATIVE Urine Urobilinogen 0.2 (NORMAL) Ur Leukocyte Esterase SMALL H Urine RBC 11-25 H Urine WBC >25 H Ur Squamous Epith Cells FEW Squamous Urine Bacteria Moderate H Ur Microscopic Review INDICATED Urine Culture Comments INDICATED Urine HCG, Qual NEGATIVE - Rads (name of study) CT KUB Radiology: EMP read contemporaneously PD MEDICAL DECISION MAKING - ED course ED course: 25-year-old woman with mostly sudden onset right flank pain today without UTI symptoms. She has a history of frequent UTIs but her history was actually more consistent with renal colic, that said a CT was done with no pertinent positive findings including no ureterolith or nephrolith and her urine was convincingly consistent with pyelonephritis treated with ciprofloxacin. She declined pain medication. Departure - Departure Disposition: 01 Home, Self Care Clinical Impression: Pyelonephritis Condition: Good Record reviewed to determine appropriate education?: Yes Instructions: Pyelonephritis Dc Prescriptions: Ciprofloxacin HCl [Cipro] 500 mg PO BID #20 tablet Comments: I sent your prescription electronically to the [facility] pharmacy at the corner of [address] [place] [address] [address] [facility] in [place] We will culture your urine, the results should be done in 48-72 hours. If an a ntibiotic change is necessary we will call you. Return if worse in the meantime, especially if you develop increasing flank pain, fevers, or cannot keep down the medication. Discharge Date/Time: 08/16/21 21:10
[2021-08-16 19:50] LABS: HCG UR QUAL NEGATIVE
--- NOTE | 2021-08-16 20:55 | CT Report ---
PROCEDURE: Abdomen/Pelvis WO INDICATIONS: R flank pain TECHNIQUE: Noncontrast 5 mm thick sections acquired from the diaphragms to the symphysis. 5 mm coronal and sagi ttal reformats were then performed. For radiation dose reduction, the following was used: automated exposure control, adjustment of mA and/or kV according to patient size. COMPARISON: None. FINDINGS: Image quality: Excellent. Lung bases: Unremarkable. Heart: Heart is normal in size. ABDOMEN: Liver:Noncontrast evaluation of the liver demonstrates no discrete hepatic mass. Gallbladder: Within normal limits without calcified gallstones. Biliary ducts: No biliary ductal dilatation. Pancreas: Unremarkable. Spleen: Normal in size. Adrenal Glands: No adrenal nodules. Kidneys and Ureters: No hydronephrosis or nephrolithiasis. No perinephric stranding. No definite hyd roureter. Stomach and Bowel: Stomach, small bowel loops, and colon are normal in caliber and wall thickness. E valuation of the appendix is limited by paucity of intraluminal fat and absence of intravenous contra st but the partially visualized appendix appears within normal limits. Peritoneum: No abnormal intraperitoneal fluid. No free air. Ventral Wall: No hernia. Abdominal Nodes: No retroperitoneal or mesenteric adenopathy by size criteria. Vessels: Aorta and inferior vena cava are normal in size. PELVIS: Pelvic Organs:An IUD appears in appropriate position within the uterus. Bladder: Unremarkable. Pelvic Nodes: No enlarged lymph nodes. Miscellaneous: No inguinal hernias are seen. Bones: Visualized osseous structures demonstrate no suspicious focal lesions. IMPRESSION: 1. No definite acute intra-abdominal abnormality. Specifically, no nephrolithiasis or evidence of obs tructive uropathy. 2. No definite evidence of appendicitis. Reviewed by: Asa Kwan MD on 08/16/2021 8:54 PM PDT Approved by: Asa Kwan MD on 08/16/2021 8:54 PM PDT Station ID: [id number]
[2021-08-16] MEDS ORDERED: CIPROFLOXACIN 250 MG TABLET PO STA (21:00)
[2021-08-16 21:11] VITALS: BP 144/72
== END 2021-08-16 21:10 | disposition home or self-care (01) ==
LOC: ED 19:11
DX: N12 Tubulo-interstitial nephritis, not specified as acute or chronic (principal); F17.200 Nicotine dependence, unspecified, uncomplicated
CPT/HCPCS: 74176; 81001; 81025; 87086; 99283; 99284; A9270; 81003; 87077; 87181

== ENCOUNTER 2021-12-02 14:38 | Emergency (ER) | payer MEDICAID ==
[2021-12-02 14:49] VITALS: BP 122/71
--- NOTE | 2021-12-02 15:21 | ED Physician Documentation ---
History of Present Illness - Stated complaint Stated Complaint: R SIDE FACE PX - Chief complaint Chief Complaint: Wound - Additonal information Additional information: 26-year-old female presents emergency department for evaluation what she b elieves to be recurrent impetigo on her right lower cheek. She removed a pustule 2 days ago and has since then had some dry cracked erythematous skin surrounding with clear drainage. Was seen for similar about a month ago and diagnosed with impetigo but did require oral antibiotics. 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: Miscarriage(s) : None HEENT: None Psych: Anxiety, Obsessive compulsive disorder Musculoskeletal: None Derm: None - Past Surgical History Past Surgical History: Yes /PROGRAM PROJECT MANAGER: Dilation and currettage - Present Medications Home Medications: Ambulatory Orders Medication Instructions Recorded Confirmed No Known Home Medications 12/02/21 12/02/21 - Allergies Allergies/Adverse Reactions: Allergies Allergy/AdvReac Type Severity Reaction Status Date / Time Penicillins Allergy Edema Verified 12/02/21 14:49 - Social History Does the pt smoke?: Yes Smoking Status: Current every day smoker Does the pt drink ETOH?: No Does the pt have substance abuse?: Yes - Immunizations Immunizations are current?: Yes - POLST Patient has POLST: No PD ED PE EXPANDED - General General: Alert, No acute distress - Derm Derm: Other (Superficial ulceration on the right lower cheek with some clear drainage. 0.25cm Minimal surrounding erythema and no induration.) Results - Vitals Vitals: Vital Signs - 24 hr 12/02/21 14:45 Temperature 36.5 C Heart Rate 66 Respiratory 16 Rate Blood Pressure 122/71 O2 Saturation 99 Oxygen O2 Source Room air PD MEDICAL DECISION MAKING - ED course Complexity details: considered differential, d/w patient ED course: 26-year-old female presents emergency department for concerns of a recurrent of a [place] on her right lower cheek. On exam she does have a superficial ulceration with minimal surrounding erythema but there is some yellow serous drainage. She does not present with facial cellulitis as such. Patient is advised warm compress and triple antibiotic ointment. Clinically at this time would not benefit from oral antibiotics. Emergent return precautions discussed Departure - Departure Disposition: 01 Home, Self Care Clinical Impression: Impetigo Condition: Stable Record reviewed to determine appropriate education?: Yes Instructions: Impetigo Comments: You do have an early but small impetigo on your right lower cheek. I do recommend a warm compress to this area 2-3 times a day for [address] a thin layer of triple antibiotic ointment. With this treatment I would expect improvement in the skin appearance over the next 3 to 5 days. If not improving or worsening before then then please return immediately to the ER.
== END 2021-12-02 15:24 | disposition home or self-care (01) ==
LOC: ED 14:38
DX: L01.00 Impetigo, unspecified (principal); F41.9 Anxiety disorder, unspecified; F17.200 Nicotine dependence, unspecified, uncomplicated
CPT/HCPCS: 99281; 99282

== ENCOUNTER 2022-02-12 10:27 | Outpatient (CLI) | payer MEDICAID ==
[2022-02-12 10:41] LABS: BASOPHILS % (AUTO) 0.4 %; EOSINOPHILS # (AUTO) 0.2 10^3/uL (0.0-0.7); HCT - HEMATOCRIT 42.5 % (37.0-47.0); HGB - HEMOGLOBIN 13.4 g/dL (12.0-16.0); LYMPHOCYTES # (AUTO) 1.7 10^3/uL (1.5-3.5); LYMPHOCYTES % (AUTO) 21.3 %; MEAN CORPUSCULAR HEMOGLOBIN 28.8 pg (27.0-31.0); MEAN CORPUSCULAR HGB CONC 31.5 g/dL (32.0-36.0); MEAN CORPUSCULAR VOLUME 91.2 fL (81.0-99.0); MEAN PLATELET VOLUME 9.8 fL (7.9-10.8); MONOCYTES # (AUTO) 0.6 10^3/uL (0.0-1.0); MONOCYTES % (AUTO) 7.2 %; NEUTROPHILS # (AUTO) 5.4 10^3/uL (1.5-6.6); NEUTROPHILS % (AUTO) 68.7 %; PLT - PLATELET COUNT 204 10^3/uL (130-450); RED BLOOD COUNT 4.66 10^6/uL (4.20-5.40); RED CELL DISTRIBUTION WIDTH 12.9 % (12.0-15.0); WHITE BLOOD COUNT 7.8 x10^3/uL (4.8-10.8)
== END 2022-02-12 10:28 | disposition home or self-care (01) ==
LOC: LAB 10:27
PROVIDERS: ATTEND Obstetrics & Gynecology
DX: Z01.812 Encounter for preprocedural laboratory examination (principal); Z20.822 Contact with and (suspected) exposure to COVID-19
CPT/HCPCS: 36415; 85025; 86850; 86900; 86901

== ENCOUNTER 2022-02-13 07:49 | Day surgery (SDC) | payer MEDICAID ==
[2022-02-13 08:06] LABS: HCG UR QUAL NEGATIVE
[2022-02-13] MEDS ORDERED: LACTATED RINGERS 1,000 ML IV ONE (08:17)
[2022-02-13] MEDS ORDERED: LIDOCAINE MPF 2%-EPI 1:200000 20 ML VIAL ONE (08:33)
[2022-02-13] MEDS ORDERED: BUPIVACAINE 0.5% PF 30 ML VIAL ONE (08:33)
[2022-02-13] MEDS ORDERED: NALOXONE 0.4 MG/ML VIAL IVP PRN (08:45)
[2022-02-13] MEDS ORDERED: MORPHINE 2 MG/ML CARPUJECT IVP PRN (08:45)
[2022-02-13] MEDS ORDERED: ONDANSETRON 4 MG/2 ML VIAL IVP PRN (08:45)
[2022-02-13] MEDS ORDERED: ATROPINE ABBOJECT 1 MG/10 ML SYRINGE IVP PRN (08:45)
[2022-02-13] MEDS ORDERED: HYDROmorphone 0.5 MG/0.5 ML SYRINGE IVP PRN (08:45)
[2022-02-13] MEDS ORDERED: fentaNYL 100 MCG/2 ML VIAL IVP PRN (08:45)
--- NOTE | 2022-02-13 08:45 | ANESTHESIA ---
Pre-Anesthesia VS, & Labs - Diagnosis desires sterility - Procedure bilateral salpingectomy Vital Signs: Temp Pulse Resp BP Pulse Ox O2 Flow Rate 36.8 C 68 15 114/62 99 0 02/13/22 08:17 02/13/22 08:17 02/13/22 08:17 02/13/22 08:17 02/13/22 08:17 02/13/22 08:17 Height: 5 ft 4 in Weight (kg): 55.9 kg Body Mass Index: 21.1 BMI Classification: Normal - NPO >8 hours - Is Patient ?: No Home Medications and Allergies No Known Home Medications 12/02/21 Allergies/Adverse Reactions: Allergies Allergy/AdvReac Type Severity Reaction Status Date / Time Penicillins Allergy Edema, Verified 02/07/22 10:04 hives Anes History & Medical History - Anesthetic History Anesthesia Complications: reports: No previous complications - Medical History Cardiovascular: reports: None Pulmonary: reports: None Gastrointestinal: reports: Other Urinary: reports: Chronic bladder infection Neuro: reports: None Musculoskeletal: reports: None Endocrine/Autoimmune: reports: None Blood Disorders: reports: None Skin: reports: None Smoking Status: Current every day smoker (vape) Psychosocial: reports: Anxiety, Cannabis (daily) History of Cancer?: No - Surgical History Gynecologic: reports: Dilation and currettage Exam General: Alert, Oriented x3, Cooperative, No acute distress Dental: WNL Mouth Openin Fingerbreadth Neck Mobility: Normal Mallampati classification: I Thyromental Distance: 4-6 cm Mental/Cognitive Status: Alert/Oriented X3, Normal for patient Plan Anesthesia Type: General Regional Block: Per Surgeon's request for Post Op pain control Consent for Procedure(s) Verified and Reviewed: Yes Code Status: Attempt Resuscitation ASA classification: 2-Mild systemic disease Is this case an emergency?: No
[2022-02-13] MEDS ORDERED: LACTATED RINGERS 1,000 ML IV SCH (09:00)
[2022-02-13] MEDS ORDERED: KETOROLAC 30 MG/ML VIAL ONE (09:28)
[2022-02-13] MEDS ORDERED: DEXAMETHASONE 4 MG/ML VIAL ONE (09:28)
[2022-02-13] MEDS ORDERED: fentaNYL 100 MCG/2 ML VIAL ONE ×2 (09:28→09:43)
[2022-02-13] MEDS ORDERED: MIDAZOLAM 2 MG/2 ML VIAL ONE (09:28)
[2022-02-13] MEDS ORDERED: ROCURONIUM 50 MG/5 ML VIAL ONE (09:28)
[2022-02-13] MEDS ORDERED: PROPOFOL 200 MG/20 ML VIAL IVP ONE (09:28)
[2022-02-13] MEDS ORDERED: ONDANSETRON 4 MG/2 ML VIAL ONE (09:28)
[2022-02-13] MEDS ORDERED: LIDOCAINE MPF 1%-EPI 1:200000 30 ML VIAL SUBQ ONE ×2 (09:50)
[2022-02-13] MEDS ORDERED: BUPIVACAINE 0.5% PF 30 ML VIAL SUBQ ONE ×2 (09:51)
[2022-02-13] MEDS ORDERED: SUGAMMADEX 200 MG/2 ML VIAL IVP ONE (10:17)
[2022-02-13] MEDS ORDERED: HYDROmorphone 1 MG/ML CARPUJECT ONE (10:21)
[2022-02-13] MEDS ORDERED: LACTATED RINGERS 850 ML IV ONE (10:34)
--- NOTE | 2022-02-13 10:47 | OPERATIVE REPORT ---
Operative Report - General Planned Procedure: Laparoscopic bilateral salpingectomy IUD removal Pre-Op Diagnosis: Multiparity, desires permanent sterilization Procedure Performed: Laparoscopic bilateral salpingectomy IUD removal Post Op Diagnosis: Multiparity, desires permanent sterilization - Procedure Note Primary Surgeon: Ashly Cotto DO Secondary Surgeon: José Miguel Esparza MD; assistance required for retraction and safe completion Anesthesia Provider: Kacy Huynh CRNA Anesthesia Technique: General ET tube Pathology: Bilateral fallopian tubes Estimated Blood Loss (mL): 20 Indications: Multiparity, desires permanent sterilization Findings: Normal appearing uterus, tubes, ovaries Complications: None - Other Other Information/Narrative: Patient taken to OR where GETA obtained without difficulty. Placed in dorsal lithotomy position and prepped and draped in sterile fashion. [place] speculum placed in vagina. IUD strings grasped and IUD removed intact. [place] uterine manipulator placed into uterus. Speculum removed. Attention then turned to abdomen where 5mm skin incision made in umbilical fold. Veress needle carefully introduced into peritoneal cavity. Intraperitoneal placement confirmed with drop test and drop in intraabdominal pressure with CO2 gas insufflation. Trocar and sleeve advanced without difficulty into abdomen where intraabdominal placement confirmed with laparoscope. Two additional 5mm incisions made in pelvis bilaterally and trocars introduced under direct visualization. 2% lidocaine with epinephrine/5% bupivacaine injection prior to skin incisions x3. Aforementioned findings noted. Left fallopian tube grasped and LigaSure device used for transection along mesosalpinx up to uterine cornu. This was repeated on the right fallopian tube. Tubes removed through left 5mm port. Hemostasis at all dissection sites. Trocars removed under direct visualization. Pneumoperitoneum released. Umbilical trocar removed. 5mm incisions x3 were closed 4-0 Monocryl and dermabond. Sponge, lap, needle, and instrument counts were correct x2. Patient taken to PACU in stable condition.
[2022-02-13] MEDS ORDERED: ACETAMINOPHEN 325 MG TABLET PO ONE (11:00)
[2022-02-13] MEDS ORDERED: traMADol 50 MG TABLET PO ONE ×2 (11:00→11:16)
--- NOTE | 2022-02-13 11:01 | ANESTHESIA POST OP EVALUATION ---
Anesthesia Post Eval - Post Anesthesia Eval Vitals: Last Vital Signs Temp 37.1 C 02/13/22 10:50 Pulse 85 02/13/22 10:55 Resp 17 02/13/22 10:55 BP 131/66 H 02/13/22 10:55 Pulse Ox 100 02/13/22 10:55 O2 Flow Rate 0 02/13/22 08:17 CV Function Including HR & BP: Stable Pain Control: Satisfactory Nausea & Vomiting: Negative Mental Status: Baseline Respiratory Status: Airway Patent Hydration Status: Satisfactory Anesthesia Complications: None
[2022-02-13] MEDS ORDERED: ACETAMINOPHEN 500 MG TABLET PO ONE (11:16)
[2022-02-13] MEDS ORDERED: ONDANSETRON ODT 4 MG TABLET TL PRN (11:22)
[2022-02-13 11:54] VITALS: BP 122/58
== END 2022-02-13 07:50 | disposition home or self-care (01) ==
LOC: SDS 07:49
PROVIDERS: ATTEND Obstetrics & Gynecology
PROC: 0UPD7HZ Removal of Contraceptive Device from Uterus and Cervix, Via Natural or Artificial Opening (ICD-10-PCS; 2022-02-13)
PROC: 0UT74ZZ Resection of Bilateral Fallopian Tubes, Percutaneous Endoscopic Approach (ICD-10-PCS; principal; 2022-02-13 09:00)
DX: Z30.2 Encounter for sterilization (principal); Z30.432 Encounter for removal of intrauterine contraceptive device; F41.9 Anxiety disorder, unspecified; F17.290 Nicotine dependence, other tobacco product, uncomplicated
CPT/HCPCS: 58301; 58661; 81025; A9270; J1170; J7120

== ENCOUNTER 2022-08-03 12:16 | Outpatient (CLI) | payer MEDICAID ==
[2022-08-03 12:43] LABS: BASOPHILS % (AUTO) 0.4 %; EOSINOPHILS % (AUTO) 0.6 %; HGB - HEMOGLOBIN 12.7 g/dL (12.0-16.0); LYMPHOCYTES # (AUTO) 2.6 10^3/uL (1.5-3.5); LYMPHOCYTES % (AUTO) 51.5 %; MEAN CORPUSCULAR HEMOGLOBIN 29.1 pg (27.0-31.0); MEAN CORPUSCULAR HGB CONC 32.6 g/dL (32.0-36.0); MEAN CORPUSCULAR VOLUME 89.2 fL (81.0-99.0); MONOCYTES # (AUTO) 0.4 10^3/uL (0.0-1.0); MONOCYTES % (AUTO) 7.3 %; PLT - PLATELET COUNT 203 10^3/uL (130-450); RED BLOOD COUNT 4.37 10^6/uL (4.20-5.40); RED CELL DISTRIBUTION WIDTH 12.4 % (12.0-15.0); WHITE BLOOD COUNT 5.1 x10^3/uL (4.8-10.8)
[2022-08-03 12:56] LABS: ALBUMIN 4.5 g/dL (3.2-5.5); ALBUMIN/GLOBULIN RATIO 1.4 (1.0-2.2); ALKALINE PHOSPHATASE 55 IU/L (42-121); ALT ALANINE AMINOTRANSFERASE 20 IU/L (10-60); AST ASPARTATE AMINOTRANSFERASE 23 IU/L (10-42); BILIRUBIN,TOTAL 0.6 mg/dL (0.2-1.0); BUN - BLOOD UREA NITROGEN 12 mg/dL (6-20); CALCIUM 9.2 mg/dL (8.5-10.3); CARBON DIOXIDE - CO2 27 mmol/L (21-32); CHLORIDE 104 mmol/L (101-111); CHOL/HDL RATIO 2.7 (<4.4); CHOLESTEROL 185 mg/dL; CREATININE 0.7 mg/dL (0.4-1.0); GFR - MDRD 100 (>89); GLUCOSE 92 mg/dL (70-100); HDL CHOLESTEROL 69 mg/dL; SODIUM 138 mmol/L (135-145); TOTAL PROTEIN 7.7 g/dL (6.7-8.2); TRIGLYCERIDES 36 mg/dL
[2022-08-03 13:08] LABS: THYROID STIMULATING HORMONE 1.29 uIU/mL (0.34-5.60)
== END 2022-08-03 12:17 | disposition home or self-care (01) ==
LOC: LAB 12:16
PROVIDERS: ATTEND Nurse Practitioner
DX: R53.83 Other fatigue (principal); Z13.220 Encounter for screening for lipoid disorders
CPT/HCPCS: 36415; 80050; 80061; 83721